=== PATIENT | male | born 1945 | race Caucasian/White ===

== ENCOUNTER 2018-04-17 15:45 | Inpatient (IN) ==
[2018-04-17] MEDS ORDERED: Metoprolol Inj 5 MG/5 ML Vial IV.PUSH ONE (15:54)
--- NOTE | 2018-04-17 16:05 | ED ---
HPI General Chief Complaint: Chest Pain Stated Complaint: STEMI Time Seen by Provider: 04/17/18 15:52 Source: patient Mode of arrival: EMS Limitations: no limitations History of Present Illness HPI narrative: The patient is a 72-year-old male who presents to the emergency department via EMS as a STEMI alert. The patient states he was trying to sleep this morning at 9 AM when he was awakened with shortness of breath. The patient complained of shortness of breath and intermittent chest tightness associated with the shortness of breath. The patient also had mild nausea without any vomiting or diaphoresis. The patient does have a history of atrial fibrillation and is currently anticoagulated with Coumadin. He denies any history of DVT or pulmonary embolism. The patient shortness of breath continued, therefore, EMS was called by the patient's . EMS stated that the patient was in atrial fibrillation with RVR, rate in the 170s-180s on scene. EMS provided nitroglycerin, aspirin, and Cardizem intravenously to slow the rate. The patient's rate came down into the 120s and EMS called a STEMI because the patient had a right bundle branch block. Upon arrival the patient' s discomfort is a 1, his shortness of breath has improved. The patient does have a history of previous CABG and is followed by his medical detailist at the [facility] clinic. complaint: Reports chest pain Onset (ago): hour(s) Duration: intermittent and improved Onset: during rest Pain location: Reports left chest Severity: moderate Severity scale (1-10): 1 Quality: Reports tightness Pain radiation: Reports none Relieving factors: nitroglycerin Exacerbating factors: nothing Associated symptoms: Reports nausea and dyspnea Treatments prior to arrival chest pain: Reports aspirin and nitroglycerin Related Data Home Medications Medication Instructions Recorded Confirmed enalapril maleate 5 mg PO TID 04/17/18 04/17/18 furosemide 40 mg PO DAILY 04/17/18 04/17/18 methocarbamol [Robaxin] 500 mg PO QID 04/17/18 04/17/18 omeprazole 40 mg PO DAILY 04/17/18 04/17/18 tamsulosin 0.4 mg PO HS 04/17/18 04/17/18 tramadol 50 mg PO QID 04/17/18 04/17/18 warfarin 5 mg PO BID 04/17/18 04/17/18 Allergies Allergy/AdvReac Type Severity Reaction Status Date / Time diatrizoate meglumine Allergy Severe Hives Unverified 04/17/18 17:13 gadobenic acid Allergy Severe Hives Unverified 04/17/18 17:13 gadodiamide Allergy Severe Hives Unverified 04/17/18 17:13 gadoteridol Allergy Severe Hives Unverified 04/17/18 17:13 iodixanol Allergy Severe Hives Unverified 04/17/18 17:13 iohexol Allergy Severe Hives Unverified 04/17/18 17:13 pesticide Allergy Intermediate Hives Unverified 04/17/18 17:13 Review of Systems ROS: all other systems reviewed are negative [facility] Medical History Medical History A-fib (Acute) CHF (congestive heart failure) (Acute) Heart attack (Acute) Surgical History Surgical History S/P CABG x 2 (Acute) Social History Social History Substance History: No History of Abuse Second Hand Smoke Exposure: Yes Smoking Status: Never smoker How Often Do You Have a Drink Containing Alcohol: Never Recent Travel in [facility] [place] within the Last 8 Weeks: No Recent Out of Country Travel within the Last 8 Weeks: No Exam Narrative Exam Narrative: GENERAL: Awake, alert, pleasant 72-year-old male who appears his stated age and is in no acute respiratory distress. SKIN: Focused skin assessment warm/dry. HEAD: Atraumatic. Normocephalic. EYES: No injection or drainage. ENT: No nasal bleeding or discharge. Mucous membranes pink and moist. NECK: Trachea midline. No JVD. CARDIOVASCULAR: Irregularly irregular, heart rate in the 120s. Well-healed scar over the sternum. RESPIRATORY: No accessory muscle use. Few scattered rales. GASTROINTESTINAL: Abdomen soft, obese, no rebound tenderness. MUSCULOSKELETAL: No obvious deformities. No clubbing. No cyanosis. Bilateral lower extremity pitting edema. NEUROLOGICAL: Awake and alert. No obvious cranial nerve deficits. Motor grossly within normal limits. Normal speech. PSYCHIATRIC: Appropriate mood and affect; insight and judgment normal. Course Initial Documented Vital Signs Pulse Rate 120 H 04/17/18 15:54 Respiratory Rate 17 04/17/18 15:54 Blood Pressure 138/67 04/17/18 15:54 Pulse Oximetry 90 L 04/17/18 15:54 Last Documented Vital Signs Pulse Rate 106 H 04/17/18 16:42 Respiratory Rate 25 H 04/17/18 16:42 Blood Pressure 131/81 04/17/18 16:42 Pulse Oximetry 94 L 04/17/18 16:42 Critical Care Time Critical Care Time: Yes Total Critical Care Time: 35 Attestation: Aggregate critical care time was 35 minutes. Time to perform other separately billable procedures was not included in the critical care time. My time did not include minutes spent treating any other patients simultaneously or on activities that did not directly contribute to the patient's treatment. The services I provided to this patient were to treat and/or prevent clinically significant deterioration that could result in: Pulmonary edema, cardiomyopathy , hypoxia, aspiration, arrhythmia, . I provided critical care services requiring my management, as noted below: Chart data review, documentation time, medication orders and management, vital sign assessments/reviewing monitor data, ordering and reviewing lab tests, ordering and interpreting/reviewing x-rays and diagnostic studies, care of the patient and discussion of the patient with the admitting physicians. Medical Decision Making MDM Narrative Medical decision making narrative: IV was established, labs are drawn and sent, and the patient was placed on cardiac telemetry monitoring and continuous pulse oximetry monitoring. EKG was ordered and interpreted. EKG reveals atrial fibrillation with RVR, right bundle branch block, no obvious STEMI. The patient 's chest pain is now a 1, the patient shortness of breath has resolved, I do not believe the patient is having acute STEMI. The patient received aspirin and nitroglycerin prior to arrival. The patient was not immediately anticoagulated, PT/INR was sent to lab as patient is on Coumadin. Chest x-ray was obtained. Chest x-ray does reveal cardiomegaly, questionable early pulmonary edema. Troponin was 0.05. The patient was reassessed at 5:10 PM, was chest pain-free. The patient still had mild tachycardia with a heart rate of 110, A. fib with RVR. The patient received Cardizem in the field and Lopressor in the emergency department. He is on sotalol for rate control through the CT clinic. Therefore, the patient will be placed on a Cardizem drip , placed in [facility], may need evaluation by cardiology. The patient had an INR of 1.3, he is subtherapeutic. The patient may need increase in warfarin levels and /or change in anticoagulation. I discussed the patient with Dr. Mcfarland who agrees with admission. Medical Screen Exam Complete: Yes Emergency Medical Condition: Yes Lab Data Lab results reviewed: Yes I reviewed the patient's lab results. Result diagrams: 04/17/18 16:07 04/17/18 16:07 Lab Results 04/17/18 04/17/18 04/17/18 Range/Units 16:07 16:07 16:07 WBC 11.2 H (4.0-11.0) th/mm3 RBC 4.56 (4.50-5.90) mil/mm3 Hgb 13.8 (13.0-17.0) gm/dL Hct 42.0 (39.0-51.0) % MCV 92.0 (80.0-100.0) fL MCH 30.4 (27.0-34.0) pg MCHC 33.0 (32.0-36.0) % RDW 14.7 (11.6-17.2) % Plt Count 186 (150-450) th/mm3 MPV 8.9 (7.0-11.0) fL Neut % (Auto) 87.1 H (16.0-70.0) % Lymph % (Auto) 6.8 L (9.0-44.0) % [place] % (Auto) 5.1 (0.0-8.0) % Eos % (Auto) 0.4 (0.0-4.0) % Baso % (Auto) 0.6 (0.0-2.0) % Neut # (Auto) 9.7 H (1.8-7.7) th/mm3 Lymph # (Auto) 0.8 L (1.0-4.8) th/mm3 Cabell # (Auto) 0.6 (0.0-0.9) th/mm3 Eos # (Auto) 0.0 (0.0-0.4) th/mm3 Baso # (Auto) 0.1 (0.0-0.2) th/mm3 WBC Differential . Differential Comment Auto diff final PT 12.7 H (9.8-11.6) sec INR 1.3 Ratio APTT 27.8 (24.3-30.1) sec Sodium 139 (136-145) meq/L Potassium 4.0 (3.5-5.1) meq/L Chloride 101 (98-107) meq/L Carbon Dioxide 28.2 (21.0-32.0) meq/L Anion Gap 10 (5-15) meq/L BUN 15 (7-18) mg/dL Creatinine 1.03 (0.60-1.30) mg/dL Estimated GFR 71 L (>89) mL/min Random Glucose 112 H (74-106) mg/dL Calcium 8.4 L (8.5-10.1) mg/dL Magnesium 2.0 (1.5-2.5) mg/dL Total Bilirubin 1.0 (0.2-1.0) mg/dL AST 24 (15-37) U/L ALT 30 (12-78) U/L Alkaline Phosphatase 85 (45-117) U/L Total Creatine Kinase 84 (39-308) U/L Troponin I 0.05 (0.02-0.05) ng/mL Total Protein 7.5 (6.4-8.2) g/dL Albumin 3.5 (3.4-5.0) g/dL Lipase 93 (73-393) U/L Imaging Data Radiologist's impression: Chest X-Ray 04/17/18 15:54 CONCLUSION: Cardiomegaly with pulmonary vascular engorgement. Bibasilar consolidation in part due to atelectasis on the left due to an elevated hemidiaphragm. I cannot exclude early pulmonary edema. ECG Data EKG Prior to Arrival: No Attestation: I personally reviewed and interpreted this ECG as follows: Interpretation: Atrial fibrillation with RVR, rate 115. Unifocal PVC. Right bundle branch block. Discharge Plan Discharge Disposition Patient Disposition: 30 Still Patient Discharge Condition Condition: Stable Discharge Details Diagnosis: Atrial fibrillation with RVR Physicians Team ED Provider: [place] Obrien Primary Care Provider: [facility] [place] Rxs /Orders / Referrals /Forms Prescriptions: No Action enalapril maleate 5 mg Tablet 5 mg PO TID RF: 0 furosemide 40 mg Tablet 40 mg PO DAILY RF: 0 omeprazole 40 mg Capsule,Delayed Release(Dr/Ec) 40 mg PO DAILY RF: 0 tamsulosin 0.4 mg Capsule 0.4 mg PO HS RF: 0 warfarin 5 mg Tablet 5 mg PO BID RF: 0 Discharge Instructions Patient Printed Instructions: Chest Pain (ED) Status ED Status: Pending Admission
--- NOTE | 2018-04-17 16:24 | XR ---
EXAM DATE: 04/17/2018 3:54 PM EDT AGE/SEX: 72 years / Male INDICATIONS: Chest pain. CLINICAL DATA: This is the patient's initial encounter. Patient reports that signs and symptoms have been present for 1 day and indicates a pain score of 1/10. MEDICAL/SURGICAL HISTORY: Chronic obstructive pulmonary disease. Congestive heart failure. Hy pertension. CABG. Heart attacks. COMPARISON: [facility], CHEST SINGLE AP, 05/07/2012. . FINDINGS: 2 portable frontal views the chest show cardiomegaly with pulmonary vascular engorgement. Consolidati on within both lung bases. Elevation of left hemidiaphragm which is stable. No discernible effusions. Median sternotomy wires noted. CONCLUSION: Cardiomegaly with pulmonary vascular engorgement. Bibasilar consolidation in part due to atelectasis on the left due to an elevated hemidiaphragm. I ca nnot exclude early pulmonary edema. Electronically signed by: Gonzalez Cook MD 04/17/2018 4:22 PM EDT
[2018-04-17 16:28] LABS: Baso # (Auto) 0.1 th/mm3 (0.0-0.2); Baso % (Auto) 0.6 % (0.0-2.0); Eos % (Auto) 0.4 % (0.0-4.0); Hemoglobin 13.8 gm/dL (13.0-17.0); Lymph # (Auto) 0.8 th/mm3 (1.0-4.8); Lymph % (Auto) 6.8 % (9.0-44.0); Mean Corpuscular Hemoglobin 30.4 pg (27.0-34.0); Mean Platelet Volume 8.9 fL (7.0-11.0); Mono # (Auto) 0.6 th/mm3 (0.0-0.9); Mono % (Auto) 5.1 % (0.0-8.0); Neut # (Auto) 9.7 th/mm3 (1.8-7.7); Neut % (Auto) 87.1 % (16.0-70.0); Platelet Count 186 th/mm3 (150-450); Red Blood Count 4.56 mil/mm3 (4.50-5.90); Red Cell Distribution Width 14.7 % (11.6-17.2); White Blood Count 11.2 th/mm3 (4.0-11.0)
[2018-04-17 16:33] LABS: Activated Partial Thrombo Time 27.8 sec (24.3-30.1); INR 1.3 Ratio; Prothrombin Time 12.7 sec (9.8-11.6)
[2018-04-17 16:51] LABS: Alanine Aminotransferase 30 U/L (12-78); Albumin 3.5 g/dL (3.4-5.0); Anion Gap 10 meq/L (5-15); Aspartate Aminotransferase 24 U/L (15-37); Blood Urea Nitrogen 15 mg/dL (7-18); Calcium 8.4 mg/dL (8.5-10.1); Carbon Dioxide 28.2 meq/L (21.0-32.0); Chloride 101 meq/L (98-107); Glomerular Filtration Rate 71 mL/min (>89); Glucose,Random 112 mg/dL (74-106); Lipase 93 U/L (73-393); Sodium 139 meq/L (136-145)
[2018-04-17 16:55] LABS: Alkaline Phosphatase 85 U/L (45-117); Total Protein 7.5 g/dL (6.4-8.2); Troponin I 0.05 ng/mL (0.02-0.05)
[2018-04-17 16:59] LABS: Creatine Kinase 84 U/L (39-308)
[2018-04-17] MEDS: dilTIAZem Inj 125 MG in Sodium Chlor 0.9% Inj 100 ML IV.CONT PRN (17:50)
[2018-04-17] MEDS ORDERED: Bisacodyl 10 MG Supp RECTAL PRN (18:29)
[2018-04-17] MEDS ORDERED: Sodium Chloride 0.9% 2 ML Flush PRN IV.FLUSH (18:46)
[2018-04-17 19:42] LABS: Activated Partial Thrombo Time 24.7 sec (24.3-30.1); INR 1.3 Ratio; Prothrombin Time 12.8 sec (9.8-11.6)
--- NOTE | 2018-04-17 20:10 | P.HPIM ---
History of Present Illness Service: [facility] Primary Care Physician: [facility] Chief Complaint: Chest pain History of Present Illness: 72 y/o male with a history of afib on anticoagulation, MA and CHF presented to the ED with complaints of chest pain. He states he began having pressure like, constant chest pain today in the center of his chest with radiation to his left chest with associated sob and vomiting. EMS stated that the patient was in atrial fibrillation with RVR, rate in the 170s-180s on scene. EMS provided nitroglycerin, aspirin, and Cardizem intravenously to slow the rate. The patient's rate came down into the 120s. Upon examination patient states he is comfortable, no chest pain or sob at this time. He follows with a cooler operator in [facility] at the [place]. Denies any fever, chills, headache, nausea, dizziness, or lower extremity weakness. Inpatient Certification: I certify that the inpatient services were ordered in accordance with Medicare regulations governing the order. This includes certification that hospital inpatient services are reasonable and necessary and in the case of services not specified as inpatient-only under 42 CFR 419.22(n), that they are appropriately provided as inpatient services in accordance to with the 2-midnight benchmark under 43 CFR 412.3(e) Estimated Total Length of Stay (Days): 3 Plans for Post Hospital Care: Not yet determined Review of Systems All other systems reviewed negative except as stated in HPI PMFSH - History History Provided By: Patient - Medical History Medical History: Medical History (Last Reviewed 04/17/18 @ 20:12 by ANUSHKA Mims) A-fib CHF (congestive heart failure) Heart attack - Surgical History Surgical History: Surgical History (Last Reviewed 04/17/18 @ 20:12 by ANUSHKA Mims) S/P CABG x 2 - Family History Family History: Family History (Last Reviewed 04/17/18 @ 20:12 by ANUSHKA Mims) Other Heart disease - Social History I have reviewed the patient's Social History: Yes - Tobacco History Second Hand Smoke Exposure: Yes Smoking Status: Never smoker - Alcohol History How Often Do You Have a Drink Containing Alcohol: Never - Substance Use History Substance History: No History of Abuse - Travel History Recent Travel in the [place] Within the Last 8 Weeks: No Recent Travel Out of the Country Within the Last 8 Weeks: No - Immunization History Tetanus Immunization: >5 Years Medications and Allergies Active Medications: Active Medications Acetaminophen (Tylenol) 650 mg PO Q4H PRN PRN Reason: Temp > 100.4 Al Hydroxide/Mg Hydroxide (Milk Of Magnesia Liq) 30 ml PO Q12H PRN PRN Reason: Mild Constipation Bisacodyl (Dulcolax Supp) 10 mg RECTAL DAILY PRN PRN Reason: SEVERE CONSITIPATION Heparin Sodium (Porcine) (Heparin Inj) 2,500 units IV.PUSH UNSCH PRN PRN Reason: aPTT 25-39 Heparin Sodium (Porcine) (Heparin Inj) 5,000 units IV.PUSH UNSCH PRN PRN Reason: aPTT < 25 Diltiazem HCl 125 mg/ Sodium (Chloride) 125 mls @ 5 mls/hr IV.CONT TITRATE PRN ; Protocol PRN Reason: Per Protocol Last Titration: 04/17/18 18:22 Dose: 15 mg/hr, 15 mls/hr Heparin Sodium/Dextrose (Heparin/D5w 25,000 U/250 Ml) 25,000 unit in 250 mls @ 10 mls/hr IV.CONT TITRATE PRN; Protocol PRN Reason: Per Protocol Lactulose (Lactulose Liq) 30 ml PO DAILY PRN PRN Reason: SEVERE CONSITIPATION Ondansetron HCl (Zofran Inj) 4 mg IV.PUSH Q6H PRN PRN Reason: NAUSEA OR VOMITING Senna/Docusate Sodium (Nori-Colace) 1 tab PO BID HERN[place]N Sennosides (Senokot) 17.2 mg PO Q12H PRN PRN Reason: Moderate Constipation Sodium Chloride (Ns Flush) 2 ml IV.FLUSH BID [place]ERN[place]N Sodium Chloride (Ns Flush) 2 ml IV.FLUSH PRN PRN PRN Reason: FLUSH AFTER USING IV ACCESS Allergies Allergy/AdvReac Type Severity Reaction Status Date / Time diatrizoate meglumine Allergy Severe Hives Verified 04/17/18 17:22 gadobenic acid Allergy Severe Hives Verified 04/17/18 17:22 gadodiamide Allergy Severe Hives Verified 04/17/18 17:22 gadoteridol Allergy Severe Hives Verified 04/17/18 17:22 iodixanol Allergy Severe Hives Verified 04/17/18 17:22 iohexol Allergy Severe Hives Verified 04/17/18 17:22 pesticide Allergy Intermediate Hives Verified 04/17/18 17:22 Home Medications Medication Instructions Recorded Confirmed Type enalapril maleate 5 mg PO TID 04/17/18 04/17/18 History furosemide 40 mg PO DAILY 04/17/18 04/17/18 History methocarbamol [Robaxin] 500 mg PO QID 04/17/18 04/17/18 History omeprazole 40 mg PO DAILY 04/17/18 04/17/18 History sotalol 90 mg PO Q12H 04/17/18 04/17/18 History tamsulosin 0.4 mg PO HS 04/17/18 04/17/18 History tramadol 50 mg PO QID 04/17/18 04/17/18 History warfarin 5 mg PO BID 04/17/18 04/17/18 History Exam Vital signs: Vital Signs 04/17/18 15:54 04/17/18 16:00 04/17/18 16:42 Pulse Rate 120 H 106 H Respiratory Rate 17 25 H Blood Pressure 138/67 131/81 Pulse Oximetry 90 L 95 94 L 04/17/18 18:23 Pulse Rate 124 H Respiratory Rate 26 H Blood Pressure 118/87 Pulse Oximetry 95 Intake & Output 04/17/18 04/17/18 04/18/18 06:59 18:59 06:59 Output Total 800 / 800 Balance -800 / -800 Weight 145.367 kg Output: Urine 800 / 800 Narrative: GENERAL: This is a well-nourished, well-developed patient, in no apparent distress. CARDIOVASCULAR: irregular rate and rhythm without murmurs, gallops, or rubs. RESPIRATORY: Clear to auscultation. Breath sounds equal bilaterally. No wheezes , rales, or rhonchi. GASTROINTESTINAL: Abdomen soft, non-tender, nondistended. Normal active bowel sounds MUSCULOSKELETAL: Extremities without clubbing, cyanosis, or edema. NEURO: Alert & Oriented x4 to person, place, time, situation. Moves all ext x4 Results - Labs CBC & Chem 7: 04/17/18 16:07 04/17/18 16:07 Labs: Short CBC 04/17/18 Range/Units 16:07 WBC 11.2 H (4.0-11.0) th/mm3 Hgb 13.8 (13.0-17.0) gm/dL Hct 42.0 (39.0-51.0) % Plt Count 186 (150-450) th/mm3 BMP 04/17/18 16:07 Sodium 139 Potassium 4.0 Chloride 101 Carbon Dioxide 28.2 BUN 15 Creatinine 1.03 Calcium 8.4 L Cardiac Enzymes 04/17/18 04/17/18 Range/Units 16:07 19:05 Total Creatine Kinase 84 (39-308) U/L Troponin I 0.05 0.05 (0.02-0.05) ng/mL Liver Function 04/17/18 Range/Units 16:07 Total Bilirubin 1.0 (0.2-1.0) mg/dL AST 24 (15-37) U/L ALT 30 (12-78) U/L Alkaline Phosphatase 85 (45-117) U/L Albumin 3.5 (3.4-5.0) g/dL - Imaging Impressions Chest X-Ray 04/17/18 15:54 CONCLUSION: Cardiomegaly with pulmonary vascular engorgement. Bibasilar consolidation in part due to atelectasis on the left due to an elevated hemidiaphragm. I cannot exclude early pulmonary edema. Caprini VTE Risk Assessment Caprini VTE Risk Assessment: Moderate/High Risk (score >= 2) Caprini Risk Assessment Model: Point Value = 1 Point Value = 2 Point Value = 3 Point Value = 5 Age 41-60 Minor surgery BMI > 25 kg/m2 Swollen legs Varicose veins or History of unexplained or recurrent spontaneous Oral contraceptives or hormone replacement Sepsis (< 1 month) Serious lung disease, including pneumonia (< 1 month) Abnormal pulmonary function Acute myocardial infarction Congestive heart failure (< 1 month) History of inflammatory bowel disease Medical patient at bed rest Age 61-74 Arthroscopic surgery Major open surgery (> 45 min) Laparoscopic surgery (> 45 min) Malignancy Confined to bed (> 72 hours) Immobilizing plaster cast Central venous access Age >= 75 History of VTE Family history of VTE Factor V Leiden Prothrombin [id number] Lupus anticoagulant Anticardiolipin antibodies Elevated serum homocysteine Heparin-induced thrombocytopenia Other congenital or acquired thrombophilia Stroke (< 1 month) Elective arthroplasty Hip, pelvis, or leg fracture Acute spinal cord injury (< 1 month) Prophylaxis Regimen: Total Risk Factor Score Risk Level Prophylaxis Regimen 0-1 Low Early ambulation 2 Moderate Order ONE of the following: *Sequential Compression Device (SCD) *Heparin 5000 units SQ BID 3-4 Higher Order ONE of the following medications: *Heparin 5000 units SQ TID *Enoxaparin/Lovenox 40 mg SQ daily (WT < 150 kg, CrCl > 30 mL/min) *Enoxaparin/Lovenox 30 mg SQ daily (WT < 150 kg, CrCl > 10-29 mL/min) *Enoxaparin/Lovenox 30 mg SQ BID (WT < 150 kg, CrCl > 30 mL/min) AND/OR *Sequential Compression Device (SCD) 5 or more Highest Order ONE of the following medications: *Heparin 5000 units SQ TID (Preferred with Epidurals) *Enoxaparin/Lovenox 40 mg SQ daily (WT < 150 kg, CrCl > 30 mL/min) *Enoxaparin/Lovenox 30 mg SQ daily (WT < 150 kg, CrCl > 10-29 mL/min) *Enoxaparin/Lovenox 30 mg SQ BID (WT < 150 kg, CrCl > 30 mL/min) AND *Sequential Compression Device (SCD) Assessment and Plan - Plan 72 y/o male with a history of afib on anticoagulation, MA and CHF presented to the ED with complaints of chest pain. He states he began having pressure like, constant chest pain today in the center of his chest with radiation to his left chest with associated sob and vomiting. NSTEMI with AFIB RVR Troponin .05 EGS reviewed and shows afib rvr with RBBB -Serial troponin and ekgs -Cardizem drip -Consult to cardiology -Heparin drip -Monitor telemetry -Nitropaste q6 Hypertension -Resume home medications, monitor vitals CHF, possible early exacerbation, bnp 147 Chest x ray shows atelectasis with possible edema -Resume home Lasix -Monitor fluid intake Dvt prophylaxis: SCDs, Heparin Discussed Condition With: Patient
--- NOTE | 2018-04-17 20:12 | ECG ---
Date Performed: 04/17/2018 Time Performed: 15:49:17 PTAGE: 72 years EKG: ATRIAL FIBRILLATION WITH RAPID VENTRICULAR RESPONSE RIGHT AXIS DEVIATION RIGHT BUNDLE BRANC H BLOCK POSSIBLE SEPTAL MYOCARDIAL INFARCTION ABNORMAL ECG NO PREVIOUS TRACING DOCTOR: Steven Galarza Interpretating Date/Time 04/17/2018 20:10:59
[2018-04-17] MEDS: Heparin Drip 25,000 UNIT/250 ML BAG IV.CONT PRN (22:10)
--- NOTE | 2018-04-17 22:30 | ECG ---
Date Performed: 04/17/2018 Time Performed: 19:07:15 PTAGE: 72 years EKG: ATRIAL FIBRILLATION WITH RAPID VENTRICULAR RESPONSE RIGHT AXIS DEVIATION RIGHT BUNDLE BRANC H BLOCK ABNORMAL ECG NO PREVIOUS TRACING DOCTOR: Steven Galarza Interpretating Date/Time 04/17/2018 22:29:19
[2018-04-17] MEDS: Senna/Docusate Sodium 8.6/50 MG Tablet PO SCH (22:33)
[2018-04-17] MEDS: Sodium Chloride 0.9% 2 ML Flush BID IV.FLUSH SCH (22:33)
[2018-04-18] MEDS ORDERED: Heparin 10,000 UNITS/10 ML Vial (for IV use) IV.PUSH PRN (00:45)
[2018-04-18] MEDS: dilTIAZem Inj 125 MG in Sodium Chlor 0.9% Inj 100 ML IV.CONT PRN ×2 (02:35→11:00)
[2018-04-18] MEDS: Heparin 10,000 UNITS/10 ML Vial (for IV use) IV.PUSH PRN ×2 (04:36→13:42)
[2018-04-18 05:56] LABS: Baso % (Auto) 0.5 % (0.0-2.0); Eos % (Auto) 0.1 % (0.0-4.0); Hematocrit 38.9 % (39.0-51.0); Hemoglobin 12.8 gm/dL (13.0-17.0); Lymph # (Auto) 1.1 th/mm3 (1.0-4.8); Lymph % (Auto) 12.8 % (9.0-44.0); Mean Corpuscular Volume 91.2 fL (80.0-100.0); Mean Platelet Volume 8.6 fL (7.0-11.0); Mono # (Auto) 0.7 th/mm3 (0.0-0.9); Mono % (Auto) 8.1 % (0.0-8.0); Neut # (Auto) 6.5 th/mm3 (1.8-7.7); Neut % (Auto) 78.5 % (16.0-70.0); Platelet Count 136 th/mm3 (150-450); Red Blood Count 4.26 mil/mm3 (4.50-5.90); Red Cell Distribution Width 14.8 % (11.6-17.2); White Blood Count 8.3 th/mm3 (4.0-11.0)
[2018-04-18 06:12] LABS: INR 1.4 Ratio; Prothrombin Time 13.8 sec (9.8-11.6)
[2018-04-18 06:18] LABS: Albumin 3.1 g/dL (3.4-5.0); Anion Gap 7 meq/L (5-15); Aspartate Aminotransferase 22 U/L (15-37); Blood Urea Nitrogen 16 mg/dL (7-18); Calcium 8.6 mg/dL (8.5-10.1); Carbon Dioxide 30.1 meq/L (21.0-32.0); Chloride 99 meq/L (98-107); Glomerular Filtration Rate 83 mL/min (>89); Glucose,Random 110 mg/dL (74-106); Potassium 3.7 meq/L (3.5-5.1); Sodium 136 meq/L (136-145)
[2018-04-18 06:19] LABS: Alanine Aminotransferase 25 U/L (12-78)
[2018-04-18 06:21] LABS: Alkaline Phosphatase 72 U/L (45-117); Total Protein 6.7 g/dL (6.4-8.2)
[2018-04-18] MEDS: Furosemide 40 MG Tablet PO SCH (08:44)
[2018-04-18] MEDS: Senna/Docusate Sodium 8.6/50 MG Tablet PO SCH ×2 (08:44→22:44)
[2018-04-18] MEDS: Sodium Chloride 0.9% 2 ML Flush BID IV.FLUSH SCH ×2 (08:45→22:44)
--- NOTE | 2018-04-18 08:50 | ECG ---
Date Performed: 04/18/2018 Time Performed: 00:27:40 PTAGE: 72 years EKG: Atrial fibrillation RBBB with left anterior fascicular block Nonspecific ST changes Abnorma l ECG PREVIOUS TRACING : 04/17/2018 19.07 No significant change from previous tracing noted. DOCTOR: Steven Galarza Interpretating Date/Time 04/18/2018 08:49:03
[2018-04-18] MEDS ORDERED: SOTALOL PO SCH (09:00)
--- NOTE | 2018-04-18 12:00 | P.CONCA ---
History of Present Illness Primary Care Provider: [facility] Chief Complaint: Chest pain History of Present Illness: 72 year old gentleman with a PMH of afib on coumadin, hx of CAD s/p CABG who presented to the ER with complaints of shortness of breath starting earlier in the morning associated with tightness of chest that awoke him. He was found to be in afib wiith RVR that responsed to IV DIltiazem. He is currently chest pain free on Diltiazem gtt with better HR controll. He is on Sotolol and has a history of prior ablation. According to the patient he is not always the most compliant with his coumadin. 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 He has had a prior history of afib ablation and has been maintained on sotalol. Review of Systems All other systems reviewed negative except as stated in HPI [facility] - History History Provided By: Patient - Medical History Medical History: Medical History (Last Reviewed 04/18/18 @ 08:41 by Ghulam Martin) A-fib CHF (congestive heart failure) Heart attack - Surgical History Surgical History: Surgical History (Last Reviewed 04/18/18 @ 08:42 by Ghulam Martin) S/P CABG x 2 - Family History Family History: Family History (Last Reviewed 04/17/18 @ 20:12 by ANUSHKA Mims) Other Heart disease - Tobacco History Second Hand Smoke Exposure: No Tobacco Use In Past 30 Days: No Smoking Status: Never smoker - Alcohol History How Often Do You Have a Drink Containing Alcohol: Never - Substance Use History Substance History: No History of Abuse - Travel History Recent Travel in the [place] Within the Last 8 Weeks: No Recent Travel Out of the Country Within the Last 8 Weeks: No - Immunization History Tetanus Immunization: >5 Years Medications and Allergies Active Medications: Active Medications Acetaminophen (Tylenol) 650 mg PO Q4H PRN PRN Reason: Temp > 100.4 Al Hydroxide/Mg Hydroxide (Milk Of Magnfany Liq) 30 ml PO Q12H PRN PRN Reason: Mild Constipation Bisacodyl (Dulcolax Supp) 10 mg RECTAL DAILY PRN PRN Reason: SEVERE CONSITIPATION Enalapril Maleate (Vasotec) 5 mg PO TID [facility] Last Admin: 04/18/18 08:46 Dose: 5 mg Furosemide (Lasix) 40 mg PO DAILY [facility] Last Admin: 04/18/18 08:44 Dose: 40 mg Heparin Sodium (Porcine) (Heparin Inj) 2,500 units IV.PUSH UNSCH PRN PRN Reason: aPTT 25-39 Last Admin: 04/18/18 04:36 Dose: 2,500 units Heparin Sodium (Porcine) (Heparin Inj) 5,000 units IV.PUSH UNSCH PRN PRN Reason: aPTT < 25 Diltiazem HCl 125 mg/ Sodium (Chloride) 125 mls @ 5 mls/hr IV.CONT TITRATE PRN ; Protocol PRN Reason: Per Protocol Last Admin: 04/18/18 11:00 Dose: 10 mg/hr, 10 mls/hr Heparin Sodium/Dextrose (Heparin/D5w 25,000 U/250 Ml) 25,000 unit in 250 mls @ 10 mls/hr IV.CONT TITRATE PRN; Protocol PRN Reason: Per Protocol Last Titration: 04/18/18 04:19 Dose: 1,000 units/hr, 10 mls/hr Lactulose (Lactulose Liq) 30 ml PO DAILY PRN PRN Reason: SEVERE CONSITIPATION Nitroglycerin (Nitro-Bid 2% Oint) 0.5 inch TOPICAL Q6HR [facility] Last Admin: 04/18/18 05:49 Dose: Not Given Ondansetron HCl (Zofran Inj) 4 mg IV.PUSH Q6H PRN PRN Reason: NAUSEA OR VOMITING Patient Own Med- (Sotalol 90 Mg) 0 each PO Q12H [facility] Senna/Docusate Sodium (Nori-Colace) 1 tab PO BID [facility] Last Admin: 04/18/18 08:44 Dose: 1 tab Sennosides (Senokot) 17.2 mg PO Q12H PRN PRN Reason: Moderate Constipation Sodium Chloride (Ns Flush) 2 ml IV.FLUSH BID [facility] Last Admin: 04/18/18 08:45 Dose: 2 ml Sodium Chloride (Ns Flush) 2 ml IV.FLUSH PRN PRN PRN Reason: FLUSH AFTER USING IV ACCESS Tamsulosin HCl (Flomax) 0.[address] [facility] Allergies Allergy/AdvReac Type Severity Reaction Status Date / Time diatrizoate meglumine Allergy Severe Hives Verified 04/17/18 17:22 gadobenic acid Allergy Severe Hives Verified 04/17/18 17:22 gadodiamide Allergy Severe Hives Verified 04/17/18 17:22 gadoteridol Allergy Severe Hives Verified 04/17/18 17:22 iodixanol Allergy Severe Hives Verified 04/17/18 17:22 iohexol Allergy Severe Hives Verified 04/17/18 17:22 pesticide Allergy Intermediate Hives Verified 04/17/18 17:22 Home Medications Medication Instructions Recorded Confirmed Type enalapril maleate 5 mg PO TID 04/17/18 04/17/18 History furosemide 40 mg PO DAILY 04/17/18 04/17/18 History methocarbamol [Robaxin] 500 mg PO QID 04/17/18 04/17/18 History omeprazole 40 mg PO DAILY 04/17/18 04/17/18 History sotalol 90 mg PO Q12H 04/17/18 04/17/18 History tamsulosin 0.4 mg PO HS 04/17/18 04/17/18 History tramadol 50 mg PO QID 04/17/18 04/17/18 History warfarin 5 mg PO BID 04/17/18 04/17/18 History Exam Vital signs: Vital Signs 04/17/18 15:54 04/17/18 16:00 04/17/18 16:42 Temperature Pulse Rate 120 H 106 H Respiratory Rate 17 25 H Blood Pressure 138/67 131/81 Pulse Oximetry 90 L 95 94 L 04/17/18 18:23 04/17/18 20:00 04/17/18 21:00 Temperature Pulse Rate 124 H 102 H 102 H Respiratory Rate 26 H 18 Blood Pressure 118/87 149/78 H Pulse Oximetry 95 93 L 04/17/18 22:00 04/17/18 23:00 04/17/18 23:45 Temperature Pulse Rate 90 84 Respiratory Rate Blood Pressure Pulse Oximetry 94 L 04/18/18 00:32 04/18/18 01:00 04/18/18 02:00 Temperature Pulse Rate 105 H 80 88 Respiratory Rate Blood Pressure Pulse Oximetry 04/18/18 03:00 04/18/18 03:45 04/18/18 04:00 Temperature Pulse Rate 88 84 Respiratory Rate 18 Blood Pressure 114/65 Pulse Oximetry 94 L 93 L 04/18/18 05:28 04/18/18 06:00 04/18/18 07:00 Temperature Pulse Rate 92 H 53 L 86 Respiratory Rate Blood Pressure Pulse Oximetry 04/18/18 07:24 04/18/18 08:00 04/18/18 08:40 Temperature 99.6 F Pulse Rate 80 Respiratory Rate 17 Blood Pressure 108/59 L Pulse Oximetry 95 95 92 L 04/18/18 09:00 04/18/18 10:00 04/18/18 10:10 Temperature Pulse Rate 80 82 Respiratory Rate Blood Pressure Pulse Oximetry 95 Intake & Output 04/17/18 04/18/18 04/18/18 18:59 06:59 18:59 Intake Total 555 / 555 125 / 125 Output Total 800 / 800 400 / 400 Balance -800 / -800 155 / 155 125 / 125 Weight 145.367 kg 148.5 kg Intake: IV 195 / 195 125 / 125 Heparin/D5W 25,000 U/250 mL 25, 70 / 70 000 unit In 250 ml @ 1,000 UNITS/HR 10 mls/hr IV.CONT TITRATE PRN Rx#:[id number] Cardizem Inj 125 MG In NS Inj 125 / 125 125 / 125 100 ML @ 5 MG/HR 5 mls/hr IV. CONT TITRATE PRN Rx#:[id number] Oral 360 / 360 Output: Urine 800 / 800 400 / 400 Other: Date of Last Bowel Movement 04/15/18 - Constitutional no acute distress (above average body habitus) - Routine HEENT Exam Head: Present: normocephalic Eye: Present: EOMI, PERRL ENT: Present: mucous membranes moist - Routine Neck Exam Present: supple. Absent: JVD - Routine Respiratory Exam Present: decreased breath sounds (at base) - Routine Cardiovascular Exam Present: S1, S2, murmur (1/6 at apex), irregular rhythm - Routine Abdominal Exam Present: soft, normoactive bowel sounds. Absent: tenderness - Routine Extremities Exam Absent: edema - Routine Neurological Exam Present: alert, oriented X3, CN II-XII intact Results 04/18/18 05:38 04/18/18 05:38 Cardiac Enzymes 04/17/18 04/17/18 04/17/18 Range/Units 16:07 16:07 19:05 AST 24 (15-37) U/L Troponin I 0.05 0.05 (0.02-0.05) ng/mL B-Natriuretic Peptide 147 H (0-100) pg/mL 04/18/18 04/18/18 Range/Units 00:56 05:38 AST 22 (15-37) U/L Troponin I 0.07 H (0.02-0.05) ng/mL B-Natriuretic Peptide (0-100) pg/mL Coagulation 04/17/18 04/17/18 04/17/18 Range/Units 16:07 16:07 19:05 PT 12.7 H 12.8 H (9.8-11.6) sec APTT 27.8 24.7 (24.3-30.1) sec B-Natriuretic Peptide 147 H (0-100) pg/mL 04/17/18 04/18/18 04/18/18 Range/Units 19:05 00:56 05:38 PT Cancelled 13.8 H (9.8-11.6) sec APTT Cancelled 32.0 H D (24.3-30.1) sec B-Natriuretic Peptide (0-100) pg/mL CBC 04/17/18 04/18/18 Range/Units 16:07 05:38 WBC 11.2 H 8.3 (4.0-11.0) th/mm3 RBC 4.56 4.26 L (4.50-5.90) mil/mm3 Hgb 13.8 12.8 L (13.0-17.0) gm/dL Hct 42.0 38.9 L (39.0-51.0) % Plt Count 186 136 L (150-450) th/mm3 Neut # (Auto) 9.7 H 6.5 (1.8-7.7) th/mm3 Lymph # (Auto) 0.8 L 1.1 (1.0-4.8) th/mm3 [place] # (Auto) 0.6 0.7 (0.0-0.9) th/mm3 Eos # (Auto) 0.0 0.0 (0.0-0.4) th/mm3 Baso # (Auto) 0.1 0.0 (0.0-0.2) th/mm3 Comprehensive Metabolic Panel 04/17/18 04/18/18 Range/Units 16:07 05:38 Sodium 139 136 (136-145) meq/L Potassium 4.0 3.7 (3.5-5.1) meq/L Chloride 101 99 (98-107) meq/L Carbon Dioxide 28.2 30.1 (21.0-32.0) meq/L BUN 15 16 (7-18) mg/dL Creatinine 1.03 0.90 (0.60-1.30) mg/dL Calcium 8.4 L 8.6 (8.5-10.1) mg/dL AST 24 22 (15-37) U/L ALT 30 25 (12-78) U/L Alkaline Phosphatase 85 72 (45-117) U/L Total Protein 7.5 6.7 D (6.4-8.2) g/dL Albumin 3.5 3.1 L (3.4-5.0) g/dL Intake and Output 04/17/18 04/18/18 04/18/18 22:59 06:59 14:59 Intake Total 555 / 555 125 / 125 Output Total 800 / 800 400 / 400 Balance -800 / -800 155 / 155 125 / 125 Intake: IV 195 / 195 125 / 125 Heparin/D5W 25,000 U/250 mL 25, 70 / 70 000 unit In 250 ml @ 1,000 UNITS/HR 10 mls/hr IV.CONT TITRATE PRN Rx#:[id number] Cardizem Inj 125 MG In NS Inj 125 / 125 125 / 125 100 ML @ 5 MG/HR 5 mls/hr IV. CONT TITRATE PRN Rx#:[id number] Oral 360 / 360 Output: Urine 800 / 800 400 / 400 Other: Date of Last Bowel Movement 04/15/18 Weight 145.367 kg 148.5 kg - Imaging and Cardiology Imaging: Impressions Chest X-Ray 04/17/18 15:54 CONCLUSION: Cardiomegaly with pulmonary vascular engorgement. Bibasilar consolidation in part due to atelectasis on the left due to an elevated hemidiaphragm. I cannot exclude early pulmonary edema. EKG interpretations - Dysrhythmias Supraventricular dysrhythmia: atrial fibrillation Assessment and Plan - Plan paroxysmal Afib- echo showed normal EF, no significant valve disease. -continue sotalol -continue coumadin, will consider switch to Eliquis as the patient has been missing doses. Also INR was low. -start diltiazem po and titrate down IV gtt, upon d/c can change to long acting Diltiazem. No need for JAYSON + cardioversion right now. Can likely follow up as outpatient. CAD s/p CABG -start ASA 81mg po qday should add statin Hx of CHF -would continue lasix and enalapril. WIth rate control he does not appear volume up. He is on sotalol already. EF is normal. Mildly Elevated troponin-likely secondary to the afib with RVR. No need to trend further. Please call with questions. Thank you.
[2018-04-18] MEDS ORDERED: Warfarin Consult Pharmacy OTHER PRN (12:02)
[2018-04-18] MEDS: dilTIAZem 30 MG Tablet PO SCH ×2 (13:13→17:35)
--- NOTE | 2018-04-18 14:51 | P.PNIM ---
Subjective Interval history: Patient reports feeling better. He denies chest pain or shortness of breath. Physical Exam Vital signs: Vital Signs 04/17/18 15:54 04/17/18 16:00 04/17/18 16:42 Temperature Pulse Rate 120 H 106 H Respiratory Rate 17 25 H Blood Pressure 138/67 131/81 Pulse Oximetry 90 L 95 94 L 04/17/18 18:23 04/17/18 20:00 04/17/18 21:00 Temperature Pulse Rate 124 H 102 H 102 H Respiratory Rate 26 H 18 Blood Pressure 118/87 149/78 H Pulse Oximetry 95 93 L 04/17/18 22:00 04/17/18 23:00 04/17/18 23:45 Temperature Pulse Rate 90 84 Respiratory Rate Blood Pressure Pulse Oximetry 94 L 04/18/18 00:32 04/18/18 01:00 04/18/18 02:00 Temperature Pulse Rate 105 H 80 88 Respiratory Rate Blood Pressure Pulse Oximetry 04/18/18 03:00 04/18/18 03:45 04/18/18 04:00 Temperature Pulse Rate 88 84 Respiratory Rate 18 Blood Pressure 114/65 Pulse Oximetry 94 L 93 L 04/18/18 05:28 04/18/18 06:00 04/18/18 07:00 Temperature Pulse Rate 92 H 53 L 86 Respiratory Rate Blood Pressure Pulse Oximetry 04/18/18 07:24 04/18/18 08:00 04/18/18 08:40 Temperature 99.6 F Pulse Rate 80 Respiratory Rate 17 Blood Pressure 108/59 L Pulse Oximetry 95 95 92 L 04/18/18 09:00 04/18/18 10:00 04/18/18 10:10 Temperature Pulse Rate 80 82 Respiratory Rate Blood Pressure Pulse Oximetry 95 04/18/18 11:00 04/18/18 12:00 04/18/18 12:08 Temperature Pulse Rate 82 76 Respiratory Rate Blood Pressure Pulse Oximetry 96 04/18/18 12:09 04/18/18 13:00 04/18/18 13:14 Temperature 98.8 F Pulse Rate 72 76 79 Respiratory Rate 17 17 Blood Pressure 112/53 L 113/45 L Pulse Oximetry 96 96 Intake & Output 04/17/18 04/18/18 04/18/18 18:59 06:59 18:59 Intake Total 555 / 555 125 / 125 Output Total 800 / 800 400 / 400 Balance -800 / -800 155 / 155 125 / 125 Weight 145.367 kg 148.5 kg Intake: IV 195 / 195 125 / 125 Heparin/D5W 25,000 U/250 mL 25, 70 / 70 000 unit In 250 ml @ 1,000 UNITS/HR 10 mls/hr IV.CONT TITRATE PRN Rx#:[id number] Cardizem Inj 125 MG In NS Inj 125 / 125 125 / 125 100 ML @ 5 MG/HR 5 mls/hr IV. CONT TITRATE PRN Rx#:[id number] Oral 360 / 360 Output: Urine 800 / 800 400 / 400 Other: Date of Last Bowel Movement 04/15/18 Narrative: GENERAL: This is a well-nourished, well-developed patient, in no apparent distress. CARDIOVASCULAR:rate in the 90's and irregular rhythm without murmurs, gallops, or rubs. RESPIRATORY: Clear to auscultation. Breath sounds equal bilaterally. No wheezes , rales, or rhonchi. GASTROINTESTINAL: Abdomen soft, non-tender, nondistended. Normal active bowel sounds MUSCULOSKELETAL: Extremities without clubbing, cyanosis, or edema. NEURO: Alert & Oriented x4 to person, place, time, situation. Moves all ext x4 Results - Labs CBC & Chem 7: 04/18/18 05:38 04/18/18 05:38 Laboratory Results - last 24 hr 04/17/18 04/17/18 04/17/18 16:07 16:07 16:07 WBC 11.2 H RBC 4.56 Hgb 13.8 Hct 42.0 MCV 92.0 MCH 30.4 MCHC 33.0 RDW 14.7 Plt Count 186 MPV 8.9 Neut % (Auto) 87.1 H Lymph % (Auto) 6.8 L [place] % (Auto) 5.1 Eos % (Auto) 0.4 Baso % (Auto) 0.6 Neut # (Auto) 9.7 H Lymph # (Auto) 0.8 L [place] # (Auto) 0.6 Eos # (Auto) 0.0 Baso # (Auto) 0.1 WBC Differential . Differential Comment Auto diff final PT 12.7 H INR 1.3 APTT 27.8 Sodium 139 Potassium 4.0 Chloride 101 Carbon Dioxide 28.2 Anion Gap 10 BUN 15 Creatinine 1.03 Estimated GFR 71 L Random Glucose 112 H Calcium 8.4 L Magnesium 2.0 Total Bilirubin 1.0 AST 24 ALT 30 Alkaline Phosphatase 85 Total Creatine Kinase 84 Troponin I 0.05 B-Natriuretic Peptide Total Protein 7.5 Albumin 3.5 Lipase 93 04/17/18 04/17/18 04/17/18 16:07 19:05 19:05 WBC RBC Hgb Hct MCV MCH MCHC RDW Plt Count MPV Neut % (Auto) Lymph % (Auto) [place] % (Auto) Eos % (Auto) Baso % (Auto) Neut # (Auto) Lymph # (Auto) [place] # (Auto) Eos # (Auto) Baso # (Auto) WBC Differential Differential Comment PT 12.8 H INR 1.3 APTT 24.7 Sodium Potassium Chloride Carbon Dioxide Anion Gap BUN Creatinine Estimated GFR Random Glucose Calcium Magnesium Total Bilirubin AST ALT Alkaline Phosphatase Total Creatine Kinase Troponin I 0.05 B-Natriuretic Peptide 147 H Total Protein Albumin Lipase 04/17/18 04/18/18 04/18/18 19:05 00:56 00:56 WBC RBC Hgb Hct MCV MCH MCHC RDW Plt Count MPV Neut % (Auto) Lymph % (Auto) [place] % (Auto) Eos % (Auto) Baso % (Auto) Neut # (Auto) Lymph # (Auto) [place] # (Auto) Eos # (Auto) Baso # (Auto) WBC Differential Differential Comment PT Cancelled INR Cancelled APTT Cancelled 32.0 H D Sodium Potassium Chloride Carbon Dioxide Anion Gap BUN Creatinine Estimated GFR Random Glucose Calcium Magnesium Total Bilirubin AST ALT Alkaline Phosphatase Total Creatine Kinase Troponin I 0.07 H B-Natriuretic Peptide Total Protein Albumin Lipase 04/18/18 04/18/18 04/18/18 05:38 05:38 05:38 WBC 8.3 RBC 4.26 L Hgb 12.8 L Hct 38.9 L MCV 91.2 MCH 30.0 MCHC 33.0 RDW 14.8 Plt Count 136 L MPV 8.6 Neut % (Auto) 78.5 H Lymph % (Auto) 12.8 [place] % (Auto) 8.1 H Eos % (Auto) 0.1 Baso % (Auto) 0.5 Neut # (Auto) 6.5 Lymph # (Auto) 1.1 [place] # (Auto) 0.7 Eos # (Auto) 0.0 Baso # (Auto) 0.0 WBC Differential . Differential Comment Auto diff final PT 13.8 H INR 1.4 APTT Sodium 136 Potassium 3.7 Chloride 99 Carbon Dioxide 30.1 Anion Gap 7 BUN 16 Creatinine 0.90 Estimated GFR 83 L Random Glucose 110 H Calcium 8.6 Magnesium Total Bilirubin 0.9 AST 22 ALT 25 Alkaline Phosphatase 72 Total Creatine Kinase Troponin I B-Natriuretic Peptide Total Protein 6.7 D Albumin 3.1 L Lipase 04/18/18 12:54 WBC RBC Hgb Hct MCV MCH MCHC RDW Plt Count MPV Neut % (Auto) Lymph % (Auto) [place] % (Auto) Eos % (Auto) Baso % (Auto) Neut # (Auto) Lymph # (Auto) [place] # (Auto) Eos # (Auto) Baso # (Auto) WBC Differential Differential Comment PT INR APTT 38.5 H D Sodium Potassium Chloride Carbon Dioxide Anion Gap BUN Creatinine Estimated GFR Random Glucose Calcium Magnesium Total Bilirubin AST ALT Alkaline Phosphatase Total Creatine Kinase Troponin I B-Natriuretic Peptide Total Protein Albumin Lipase - Imaging Impressions Chest X-Ray 04/17/18 15:54 CONCLUSION: Cardiomegaly with pulmonary vascular engorgement. Bibasilar consolidation in part due to atelectasis on the left due to an elevated hemidiaphragm. I cannot exclude early pulmonary edema. Assessment and Plan - Plan 72 Y/O male with: Afib with RVR: - Rate controlled on Cardizem drip. 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 Transition to oral Cardizem. Wean off drip - Continue Sotalol - Patient admits to not being consistent with Coumadin and INR is subtherapeutic. Consider switching to NOAC. CAD s/p CABG: - Continue ASA, Mildly Elevated troponin-likely secondary to the afib with RVR - Preserved EF on echo Hx of CHF -would continue lasix and enalapril. WIth rate control he does not appear volume up. He is on sotalol already. EF is normal. Discharge Planning: Possible discharge in AM if rate is controlled.
[2018-04-18] MEDS ORDERED: dilTIAZem Inj 125 MG in Sodium Chlor 0.9% Inj 100 ML IV.CONT PRN (17:14)
[2018-04-18] MEDS: Heparin Drip 25,000 UNIT/250 ML BAG IV.CONT PRN (17:32)
--- NOTE | 2018-04-18 17:48 | ECHRPT ---
Indication: ATRIAL FIB CONCLUSIONS The left ventricular systolic function is low normal with an estimated ejection fraction in the rang e of 50- 55%. Normal left ventricular size. Moderate concentric left ventricular hypertrophy. Left and Right Atrium appear to be normal size. No regional wall motion abnormalities are present. Mild thickening of the mitral valve leaflets. Mild mitral valve regurgitation. The estimated pulmonary arterial pressure is 41.6 mmHg. BP: / HR: Rhythm: Atrial fibrillation MEASUREMENTS (Male / Female) Normal Values Technical Quality:Fair 2D ECHO LVOT Diameter 2.0 cm LA Systolic Diameter LX 3.9 cm 3.0 - 4.0 / 2.7 - 3.8 cm LV Ejection Fraction MOD 4C 58.9 % LV Ejection Fraction 4C AL 60.8 % M-MODE Aortic Root Diameter MM 3.2 cm LA Systolic Diameter MM 3.1 cm LA Ao Ratio MM 1.0 AV Cusp Separation MM 2.2 cm DOPPLER AV Peak Velocity 122.0 cm/s AV Peak Gradient 6.0 mmHg LVOT Peak Velocity 103.0 cm/s LVOT Peak Gradient 4.2 mmHg AV Area Cont Eq pk 2.7 cm MV Area PHT 3.5 cm LV E' Septal Velocity 3.9 cm/s TR Peak Velocity 281.0 cm/s TR Peak Gradient 31.6 mmHg Right Atrial Pressure 10.0 mmHg Pulmonary Artery Systolic Pressu 41.6 mmHg Right Ventricular Systolic Press 41.6 mmHg PV Peak Velocity 99.1 cm/s PV Peak Gradient 3.9 mmHg FINDINGS LEFT VENTRICLE The left ventricular systolic function is low normal with an estimated ejection fraction in the rang e of 50- 55%. Normal left ventricular size. Moderate concentric left ventricular hypertrophy. No regional wall motion abnormalities are present. RIGHT VENTRICLE Normal right ventricular size and systolic function. LEFT ATRIUM The left atrial size is normal. RIGHT ATRIUM The right atrial size is normal. ATRIAL SEPTUM Normal atrial septal thickness without atrial level shunting by limited color doppler interrogation. AORTA The aortic root and proximal ascending aorta are normal in size on limited imaging. MITRAL VALVE Mild thickening of the mitral valve leaflets. Mild mitral valve regurgitation. AORTIC VALVE Trileaflet aortic valve. No aortic valve stenosis or regurgitation. TRICUSPID VALVE Structurally normal tricuspid valve. There is trace tricuspid valve regurgitation. The estimated pulmonary arterial pressure is 41.6 mmHg. PULMONARY VALVE No pulmonary valve regurgitation or stenosis. VESSELS The inferior vena cava is normal in size. PERICARDIUM No pericardial effusion. Paddy Aaron MD (Electronically Signed) Final Date:18 April 2018 17:46
[2018-04-18] MEDS: dilTIAZem 60 MG Tablet PO SCH (22:44)
[2018-04-19] MEDS: Acetaminophen 325 MG Tablet PO PRN ×2 (00:26→09:24)
[2018-04-19 05:47] LABS: INR 1.2 Ratio; Prothrombin Time 12.4 sec (9.8-11.6)
[2018-04-19 06:06] LABS: Hematocrit 36.3 % (39.0-51.0); Hemoglobin 12.1 gm/dL (13.0-17.0); Mean Corpuscular HGB Conc 33.3 % (32.0-36.0); Mean Corpuscular Hemoglobin 29.8 pg (27.0-34.0); Mean Corpuscular Volume 89.6 fL (80.0-100.0); Mean Platelet Volume 8.9 fL (7.0-11.0); Platelet Count 130 th/mm3 (150-450); Red Blood Count 4.06 mil/mm3 (4.50-5.90); Red Cell Distribution Width 14.4 % (11.6-17.2); White Blood Count 6.6 th/mm3 (4.0-11.0)
[2018-04-19] MEDS: dilTIAZem 60 MG Tablet PO SCH (09:23)
[2018-04-19] MEDS: Senna/Docusate Sodium 8.6/50 MG Tablet PO SCH (09:23)
[2018-04-19] MEDS: Sodium Chloride 0.9% 2 ML Flush BID IV.FLUSH SCH (09:24)
[2018-04-19] MEDS: Furosemide 40 MG Tablet PO SCH (09:24)
[2018-04-19 09:53] VITALS: RESP 18
--- NOTE | 2018-04-19 10:21 | P.PNCA ---
Subjective Interval history: No acute events. Wants to go home today. Medications and Allergies Active Medications: Active Medications Acetaminophen (Tylenol) 650 mg PO Q4H PRN PRN Reason: Temp > 100.4 Last Admin: 04/19/18 09:24 Dose: 650 mg Al Hydroxide/Mg Hydroxide (Milk Of Magnesia Liq) 30 ml PO Q12H PRN PRN Reason: Mild Constipation Apixaban (Eliquis) 5 mg PO BID [facility] Aspirin (Ecotrin) 81 mg PO DAILY [facility] Last Admin: 04/19/18 09:24 Dose: 81 mg Bisacodyl (Dulcolax Supp) 10 mg RECTAL DAILY PRN PRN Reason: SEVERE CONSITIPATION Diltiazem HCl (Cardizem) 60 mg PO QID [facility] Last Admin: 04/19/18 09:23 Dose: 60 mg Diltiazem HCl (Cardizem Cd 24hr) 240 mg PO ONCE ONE Stop: 04/19/18 10:16 Enalapril Maleate (Vasotec) 5 mg PO TID [facility] Last Admin: 04/19/18 09:24 Dose: 5 mg Furosemide (Lasix) 40 mg PO DAILY [facility] Last Admin: 04/19/18 09:24 Dose: 40 mg Heparin Sodium (Porcine) (Heparin Inj) 2,500 units IV.PUSH UNSCH PRN PRN Reason: aPTT 25-39 Last Admin: 04/18/18 13:42 Dose: 2,500 units Heparin Sodium (Porcine) (Heparin Inj) 5,000 units IV.PUSH UNSCH PRN PRN Reason: aPTT < 25 Diltiazem HCl 125 mg/ Sodium (Chloride) 125 mls @ 5 mls/hr IV.CONT TITRATE PRN ; Protocol PRN Reason: Per Protocol Lactulose (Lactulose Liq) 30 ml PO DAILY PRN PRN Reason: SEVERE CONSITIPATION Nitroglycerin (Nitro-Bid 2% Oint) 0.5 inch TOPICAL Q6HR [facility] Last Admin: 04/19/18 05:45 Dose: Not Given Ondansetron HCl (Zofran Inj) 4 mg IV.PUSH Q6H PRN PRN Reason: NAUSEA OR VOMITING Patient Own Med- (Sotalol 90 Mg) 0 each PO Q12H [facility] Senna/Docusate Sodium (Nori-Colace) 1 tab PO BID [facility] Last Admin: 04/19/18 09:23 Dose: 1 tab Sennosides (Senokot) 17.2 mg PO Q12H PRN PRN Reason: Moderate Constipation Sodium Chloride (Ns Flush) 2 ml IV.FLUSH BID [facility] Last Admin: 04/19/18 09:24 Dose: 2 ml Sodium Chloride (Ns Flush) 2 ml IV.FLUSH PRN PRN PRN Reason: FLUSH AFTER USING IV ACCESS Tamsulosin HCl (Flomax) 0.4 mg PO HS [facility] Last Admin: 04/18/18 22:44 Dose: 0.4 mg Allergies Allergy/AdvReac Type Severity Reaction Status Date / Time diatrizoate meglumine Allergy Severe Hives Verified 04/17/18 17:22 gadobenic acid Allergy Severe Hives Verified 04/17/18 17:22 gadodiamide Allergy Severe Hives Verified 04/17/18 17:22 gadoteridol Allergy Severe Hives Verified 04/17/18 17:22 iodixanol Allergy Severe Hives Verified 04/17/18 17:22 iohexol Allergy Severe Hives Verified 04/17/18 17:22 pesticide Allergy Intermediate Hives Verified 04/17/18 17:22 Home Medications Medication Instructions Recorded Confirmed Type enalapril maleate 5 mg PO TID 04/17/18 04/17/18 History furosemide 40 mg PO DAILY 04/17/18 04/17/18 History methocarbamol [Robaxin] 500 mg PO QID 04/17/18 04/17/18 History omeprazole 40 mg PO DAILY 04/17/18 04/17/18 History sotalol 90 mg PO Q12H 04/17/18 04/17/18 History tamsulosin 0.4 mg PO HS 04/17/18 04/17/18 History tramadol 50 mg PO QID 04/17/18 04/17/18 History warfarin 5 mg PO BID 04/17/18 04/17/18 History Physical Exam Vital signs: Vital Signs 04/18/18 11:00 04/18/18 12:00 04/18/18 12:08 Temperature Pulse Rate 82 76 Respiratory Rate Blood Pressure Pulse Oximetry 96 04/18/18 12:09 04/18/18 13:00 04/18/18 13:14 Temperature 98.8 F Pulse Rate 72 76 79 Respiratory Rate 17 17 Blood Pressure 112/53 L 113/45 L Pulse Oximetry 96 96 04/18/18 14:00 04/18/18 15:00 04/18/18 16:00 Temperature Pulse Rate 86 78 68 Respiratory Rate Blood Pressure Pulse Oximetry 04/18/18 16:33 04/18/18 17:40 04/18/18 18:00 Temperature 98.6 F Pulse Rate 80 80 Respiratory Rate 18 Blood Pressure 129/59 L Pulse Oximetry 96 04/18/18 19:00 04/18/18 20:00 04/18/18 21:00 Temperature Pulse Rate 84 82 86 Respiratory Rate 16 Blood Pressure 113/50 L Pulse Oximetry 95 04/18/18 22:00 04/18/18 23:00 04/19/18 00:00 Temperature Pulse Rate 86 90 80 Respiratory Rate 18 Blood Pressure 135/89 Pulse Oximetry 96 04/19/18 01:00 04/19/18 02:00 04/19/18 02:53 Temperature Pulse Rate 82 90 Respiratory Rate 18 Blood Pressure Pulse Oximetry 04/19/18 03:00 04/19/18 04:00 04/19/18 05:00 Temperature Pulse Rate 76 90 90 Respiratory Rate 16 Blood Pressure 117/49 L Pulse Oximetry 95 04/19/18 06:00 04/19/18 08:00 Temperature 97.8 F Pulse Rate 88 67 Respiratory Rate 18 Blood Pressure 130/58 L Pulse Oximetry 95 Intake & Output 04/18/18 04/19/18 04/19/18 18:59 06:59 18:59 Intake Total 345 / 345 720 / 720 Output Total 1275 / 1275 Balance 345 / 345 -555 / -555 Weight 149.5 kg Intake: IV 345 / 345 Heparin/D5W 25,000 U/250 mL 25, 180 / 180 000 unit In 250 ml @ 1,000 UNITS/HR 10 mls/hr IV.CONT TITRATE PRN Rx#:[id number] Cardizem Inj 125 MG In NS Inj 165 / 165 100 ML @ 5 MG/HR 5 mls/hr IV. CONT TITRATE PRN Rx#:[id number] Oral 720 / 720 Output: Urine 1275 / 1275 Other: Date of Last Bowel Movement 04/15/18 04/15/18 - Constitutional no acute distress - Routine HEENT Exam Head: Present: normocephalic - Routine Neck Exam Absent: JVD - Routine Respiratory Exam Present: CTA bilaterally - Routine Cardiovascular Exam Present: S1, S2, irregular rhythm - Routine Abdominal Exam Present: normoactive bowel sounds - Routine Neurological Exam Present: alert, oriented X3, CN II-XII intact Results 04/19/18 04:45 04/18/18 05:38 Cardiac Enzymes 04/17/18 04/17/18 04/17/18 Range/Units 16:07 16:07 19:05 AST 24 (15-37) U/L Troponin I 0.05 0.05 (0.02-0.05) ng/mL B-Natriuretic Peptide 147 H (0-100) pg/mL 04/18/18 04/18/18 Range/Units 00:56 05:38 AST 22 (15-37) U/L Troponin I 0.07 H (0.02-0.05) ng/mL B-Natriuretic Peptide (0-100) pg/mL Coagulation 04/17/18 04/17/18 04/17/18 Range/Units 16:07 16:07 19:05 PT 12.7 H 12.8 H (9.8-11.6) sec APTT 27.8 24.7 (24.3-30.1) sec B-Natriuretic Peptide 147 H (0-100) pg/mL 04/17/18 04/18/18 04/18/18 Range/Units 19:05 00:56 05:38 PT Cancelled 13.8 H (9.8-11.6) sec APTT Cancelled 32.0 H D (24.3-30.1) sec B-Natriuretic Peptide (0-100) pg/mL 04/18/18 04/18/18 04/19/18 Range/Units 12:54 20:49 04:45 PT 12.4 H (9.8-11.6) sec APTT 38.5 H D 36.3 H (24.3-30.1) sec B-Natriuretic Peptide (0-100) pg/mL 04/19/18 Range/Units 08:43 PT (9.8-11.6) sec APTT 39.1 H (24.3-30.1) sec B-Natriuretic Peptide (0-100) pg/mL CBC 04/17/18 04/18/18 04/19/18 Range/Units 16:07 05:38 04:45 WBC 11.2 H 8.3 6.6 (4.0-11.0) th/mm3 RBC 4.56 4.26 L 4.06 L (4.50-5.90) mil/mm3 Hgb 13.8 12.8 L 12.1 L (13.0-17.0) gm/dL Hct 42.0 38.9 L 36.3 L (39.0-51.0) % Plt Count 186 136 L 130 L (150-450) th/mm3 Neut # (Auto) 9.7 H 6.5 (1.8-7.7) th/mm3 Lymph # (Auto) 0.8 L 1.1 (1.0-4.8) th/mm3 [place] # (Auto) 0.6 0.7 (0.0-0.9) th/mm3 Eos # (Auto) 0.0 0.0 (0.0-0.4) th/mm3 Baso # (Auto) 0.1 0.0 (0.0-0.2) th/mm3 Comprehensive Metabolic Panel 04/17/18 04/18/18 Range/Units 16:07 05:38 Sodium 139 136 (136-145) meq/L Potassium 4.0 3.7 (3.5-5.1) meq/L Chloride 101 99 (98-107) meq/L Carbon Dioxide 28.2 30.1 (21.0-32.0) meq/L BUN 15 16 (7-18) mg/dL Creatinine 1.03 0.90 (0.60-1.30) mg/dL Calcium 8.4 L 8.6 (8.5-10.1) mg/dL AST 24 22 (15-37) U/L ALT 30 25 (12-78) U/L Alkaline Phosphatase 85 72 (45-117) U/L Total Protein 7.5 6.7 D (6.4-8.2) g/dL Albumin 3.5 3.1 L (3.4-5.0) g/dL Intake and Output 04/18/18 04/19/18 04/19/18 22:59 06:59 14:59 Intake Total 700 / 700 240 / 240 Output Total 600 / 600 675 / 675 Balance 100 / 100 -435 / -435 Intake: IV 220 / 220 Heparin/D5W 25,000 U/250 mL 25, 180 / 180 000 unit In 250 ml @ 1,000 UNITS/HR 10 mls/hr IV.CONT TITRATE PRN Rx#:[id number] Cardizem Inj 125 MG In NS Inj 40 / 40 100 ML @ 5 MG/HR 5 mls/hr IV. CONT TITRATE PRN Rx#:[id number] Oral 480 / 480 240 / 240 Output: Urine 600 / 600 675 / 675 Other: Date of Last Bowel Movement 04/15/18 04/15/18 04/15/18 Weight 149.5 kg - Imaging and Cardiology Imaging: Impressions Chest X-Ray 04/17/18 15:54 CONCLUSION: Cardiomegaly with pulmonary vascular engorgement. Bibasilar consolidation in part due to atelectasis on the left due to an elevated hemidiaphragm. I cannot exclude early pulmonary edema. Assessment and Plan - Plan paroxysmal Afib- echo showed normal EF, no significant valve disease. -continue sotalol -I had a discussion with the patient, given the unreliable nature and difficult to control INR, will place the patient on Eliquis 5 mg po BID. Given nuisance bleeding he maybe a good candidate for Watchman therapy. His [id number] socre is 3. -start Diltiazem 240mg ER po qday. CAD s/p CABG -start ASA 81mg po qday -start Lipitor 10 mg po qhs Hx of CHF -would continue lasix and enalapril. WIth rate control he does not appear volume up. He is on sotalol already. EF is normal. Mildly Elevated troponin-likely secondary to the afib with RVR. No need to trend further. Please call with questions. Thank you. Follow up with Cardiology in 2 weeks.
[2018-04-19] MEDS ORDERED: dilTIAZem CD 240 MG Capsule PO ONE (13:00)
[2018-04-19 13:02] VITALS: BP 156/74; TEMP 97.9; O2SAT 95
--- NOTE | 2018-04-19 13:02 | P.DCO ---
- Diagnosis (1) Physical deconditioning Status: Acute (2) Atrial fibrillation with RVR Status: Acute - Physical Therapy Order: Evaluate and treat, Improve ambulation, Strength and gait training - Home Health Nursing Order: Medical education, Signs/symptoms of disease process, CHF education - Case Management Consult Yes - Certification I have seen patient Salty Castro on 04/19/18. My clinical findings support the need for the requested home health care services because: Patient has SOB, Deconditioned with increased weakness I certify that my clinical findings support that this patient is homebound because: Unsteady gait/balance, Poor cardiac reserve
--- NOTE | 2018-04-19 13:03 | P.DS ---
Date of admission: 04/17/18 17:26 Primary care physician: [facility] Brief History from admission: HPI from the admitting physician: 72 y/o male with a history of afib on anticoagulation, UT and CHF presented to the ED with complaints of chest pain. He states he began having pressure like, constant chest pain today in the center of his chest with radiation to his left chest with associated sob and vomiting. EMS stated that the patient was in atrial fibrillation with RVR, rate in the 170s-180s on scene. EMS provided nitroglycerin, aspirin, and Cardizem intravenously to slow the rate. The patient's rate came down into the 120s. Upon examination patient states he is comfortable, no chest pain or sob at this time. He follows with a senior it business analyst in [facility] at the MD. Denies any fever, chills, headache, nausea, dizziness, or lower extremity weakness. Patient update on day of discharge: Patient reports he is feeling better today. Patient seen with his senior it business analyst at bedside Dr. Aaron. We discussed discharge planning at length. DS: Diagnosis - Discharge Diagnosis (1) Physical deconditioning Status: Acute (2) Atrial fibrillation with RVR Status: Acute DS: Medications - Discharge Medications Prescriptions: apixaban [Eliquis] 5 mg PO BID #60 tab diltiazem HCl [Cardizem CD] 240 mg PO DAILY #30 cap DS: Summary Hospital Course: 72 Y/O male admitted and treated for: Afib with RVR: -Patient initially treated with Cardizem drip. He was followed by cardiology Dr. Aaron. He was transitioned to oral Cardizem. Given his inconsistency with taking Coumadin, he was transitioned to Eliquis. Patient is to continue on sotalol and follow-up outpatient with cardiology. CAD s/p CABG: - Continue ASA, Mildly Elevated troponin-likely secondary to the afib with RVR - Preserved EF on echo Hx of CHF -would continue lasix and enalapril. With rate control he does not appear volume up. He is on sotalol already. EF is normal. - Time Spent with Patient Total time spent providing and/or coordinating discharge services: Less than 30 minutes - Quality: VTE Deep Vein Thrombosis/Pulmonary Embolism Present on Admission: No Exam Vital signs: Vital Signs 04/18/18 13:14 04/18/18 14:00 04/18/18 15:00 Temperature Pulse Rate 79 86 78 Respiratory Rate 17 Blood Pressure 113/45 L Pulse Oximetry 96 04/18/18 16:00 04/18/18 16:33 04/18/18 17:40 Temperature 98.6 F Pulse Rate 68 80 Respiratory Rate 18 Blood Pressure 129/59 L Pulse Oximetry 96 04/18/18 18:00 04/18/18 19:00 04/18/18 20:00 Temperature Pulse Rate 80 84 82 Respiratory Rate 16 Blood Pressure 113/50 L Pulse Oximetry 95 04/18/18 21:00 04/18/18 22:00 04/18/18 23:00 Temperature Pulse Rate 86 86 90 Respiratory Rate Blood Pressure Pulse Oximetry 04/19/18 00:00 04/19/18 01:00 04/19/18 02:00 Temperature Pulse Rate 80 82 90 Respiratory Rate 18 Blood Pressure 135/89 Pulse Oximetry 96 04/19/18 02:53 04/19/18 03:00 04/19/18 04:00 Temperature Pulse Rate 76 90 Respiratory Rate 18 16 Blood Pressure 117/49 L Pulse Oximetry 95 04/19/18 05:00 04/19/18 06:00 04/19/18 07:00 Temperature Pulse Rate 90 88 90 Respiratory Rate Blood Pressure Pulse Oximetry 04/19/18 08:00 04/19/18 09:00 04/19/18 10:00 Temperature 97.8 F Pulse Rate 88 92 H 86 Respiratory Rate 18 Blood Pressure 130/58 L Pulse Oximetry 95 04/19/18 10:17 04/19/18 11:00 04/19/18 12:00 Temperature 97.9 F Pulse Rate 94 H 91 H Respiratory Rate 18 Blood Pressure 156/74 H Pulse Oximetry 94 L 95 04/19/18 13:00 Temperature Pulse Rate 90 Respiratory Rate Blood Pressure Pulse Oximetry Intake & Output 04/18/18 04/19/18 04/19/18 18:59 06:59 18:59 Intake Total 345 / 345 720 / 720 250 / 250 Output Total 1275 / 1275 Balance 345 / 345 -555 / -555 250 / 250 Weight 149.5 kg Intake: IV 345 / 345 250 / 250 Heparin/D5W 25,000 U/250 mL 25, 180 / 180 250 / 250 000 unit In 250 ml @ 1,000 UNITS/HR 10 mls/hr IV.CONT TITRATE PRN Rx#:[id number] Cardizem Inj 125 MG In NS Inj 165 / 165 100 ML @ 5 MG/HR 5 mls/hr IV. CONT TITRATE PRN Rx#:[id number] Oral 720 / 720 Output: Urine 1275 / 1275 Other: Date of Last Bowel Movement 04/15/18 04/15/18 Narrative: GENERAL: This is a well-nourished, well-developed patient, in no apparent distress. CARDIOVASCULAR:rate in the 80's and irregular rhythm without murmurs, gallops, or rubs. RESPIRATORY: Clear to auscultation. Breath sounds equal bilaterally. No wheezes , rales, or rhonchi. GASTROINTESTINAL: Abdomen soft, non-tender, nondistended. Normal active bowel sounds MUSCULOSKELETAL: Extremities without clubbing, cyanosis, or edema. NEURO: Alert & Oriented x4 to person, place, time, situation. Moves all ext x4 Results Procedures completed during hospitalization: None Labs on day of discharge: Labs from last 24 hours 04/19/18 04/19/18 04/19/18 08:43 04:45 04:45 WBC 6.6 RBC 4.06 L Hgb 12.1 L Hct 36.3 L MCV 89.6 MCH 29.8 MCHC 33.3 RDW 14.4 Plt Count 130 L MPV 8.9 PT 12.4 H INR 1.2 APTT 39.1 H 04/18/18 04/18/18 20:49 12:54 WBC RBC Hgb Hct MCV MCH MCHC RDW Plt Count MPV PT INR APTT 36.3 H 38.5 H D - Impressions ITS Impressions Chest X-Ray 04/17/18 15:54 CONCLUSION: Cardiomegaly with pulmonary vascular engorgement. Bibasilar consolidation in part due to atelectasis on the left due to an elevated hemidiaphragm. I cannot exclude early pulmonary edema. Discharge Plan - Discharge Disposition Patient Disposition: W/Home Health Service - Discharge Condition Condition: Stable - Discharge Order Discharge Orders: Discharge Order (Routine); Ordered 04/19/18 Ordered By: Corey Rob - Physicians Team Primary Care Provider: [facility] Attending Provider: Corey Rob Other Providers: Emanuel Block DO
[2018-04-19 14:33] VITALS: PULSE 75
--- NOTE | 2018-04-19 21:34 | ECG ---
Date Performed: 04/18/2018 Time Performed: 10:34:08 PTAGE: 72 years EKG: Atrial fibrillation Left axis deviation IV conduction defect Extensive ST elevation suggest s pericarditis Abnormal ECG PREVIOUS TRACING : 04/18/2018 00.27 Since the previous tracing, no significant change noted DOCTOR: Lalito Malloy Interpretating Date/Time 04/19/2018 21:34:12
== END 2018-04-19 14:43 | disposition home health service (06) ==
LOC: NEPC 15:45 → NEDA 17:26 → HCIS 19:23
PROVIDERS: ADMIT Family Medicine; ATTEND Family Medicine

== ENCOUNTER 2018-04-21 09:54 | Inpatient (IN) ==
[2018-04-21] MEDS ORDERED: Hydrocortisone Sod Succinate 100 MG Vial IV.PUSH ONE (10:14)
[2018-04-21] MEDS ORDERED: Heparin 10,000 UNITS/10 ML Vial (for IV use) IV.PUSH STA (10:14)
[2018-04-21] MEDS ORDERED: Sod Chloride 0.9% Inj 1,000 ML IV.SIG SCH (10:15)
[2018-04-21 10:27] LABS: Baso # (Auto) 0.1 th/mm3 (0.0-0.2); Baso % (Auto) 0.5 % (0.0-2.0); Eos # (Auto) 0.1 th/mm3 (0.0-0.4); Eos % (Auto) 0.9 % (0.0-4.0); Hematocrit 38.5 % (39.0-51.0); Hemoglobin 12.9 gm/dL (13.0-17.0); Lymph # (Auto) 0.5 th/mm3 (1.0-4.8); Lymph % (Auto) 4.3 % (9.0-44.0); Mean Corpuscular HGB Conc 33.5 % (32.0-36.0); Mean Corpuscular Hemoglobin 30.2 pg (27.0-34.0); Mean Corpuscular Volume 90.3 fL (80.0-100.0); Mean Platelet Volume 8.8 fL (7.0-11.0); Mono # (Auto) 0.3 th/mm3 (0.0-0.9); Mono % (Auto) 2.1 % (0.0-8.0); Neut # (Auto) 11.5 th/mm3 (1.8-7.7); Neut % (Auto) 92.2 % (16.0-70.0); Platelet Count 172 th/mm3 (150-450); Red Blood Count 4.27 mil/mm3 (4.50-5.90); Red Cell Distribution Width 14.2 % (11.6-17.2); White Blood Count 12.4 th/mm3 (4.0-11.0)
[2018-04-21] MEDS ORDERED: Heparin 10,000 UNITS/10 ML Vial (for IV use) ONE (10:32)
[2018-04-21] MEDS ORDERED: Heparin/NS PF Inj 500 ML ONE (10:32)
--- NOTE | 2018-04-21 10:33 | ED ---
HPI General Chief Complaint: STEMI Alert Stated Complaint: stemi Time Seen by Provider: 04/21/18 09:58 History of Present Illness HPI narrative: Is a 72-year-old male with a history of coronary artery disease, atrial fibrillation, who presents today with complaints of 10 out of 10 chest pain. Patient called 911 and when paramedics arrived, they found him to be diaphoretic and having nausea vomiting with the chest pain. The patient was given sublingual nitroglycerin and decrease his pain from a 10 out of 10 to a 4 out of 10. Patient was here 3 days ago for similar findings. EKG showed diffuse ST elevation worse in the inferior leads and a STEMI alert was called. The patient was reportedly taken off of his warfarin and started on Eliquis. According to the patient he has not filled his Eliquis prescription and is not been on any anticoagulants for 1 week. Related Data Home Medications Medication Instructions Recorded Confirmed enalapril maleate 5 mg PO BID 04/17/18 04/21/18 furosemide 40 mg PO DAILY 04/17/18 04/21/18 methocarbamol [Robaxin] 500 mg PO QID PRN 04/17/18 04/21/18 omeprazole 40 mg PO DAILY 04/17/18 04/21/18 sotalol 60 mg PO Q12H 04/17/18 04/21/18 tamsulosin 0.4 mg PO HS 04/17/18 04/21/18 tramadol 50 mg PO QID 04/17/18 04/21/18 Previous Rx's Medication Instructions Recorded apixaban [Eliquis] 5 mg PO BID #60 tab 04/19/18 aspirin 81 mg PO DAILY tab 04/19/18 diltiazem HCl [Cardizem CD] 240 mg PO DAILY #30 cap 04/19/18 Allergies Allergy/AdvReac Type Severity Reaction Status Date / Time diatrizoate meglumine Allergy Severe Hives Verified 04/21/18 10:01 gadobenic acid Allergy Severe Hives Verified 04/21/18 10:01 gadodiamide Allergy Severe Hives Verified 04/21/18 10:01 gadoteridol Allergy Severe Hives Verified 04/21/18 10:01 iodixanol Allergy Severe Hives Verified 04/21/18 10:01 iohexol Allergy Severe Hives Verified 04/21/18 10:01 pesticide Allergy Intermediate Hives Verified 04/21/18 10:01 Review of Systems ROS: all other systems reviewed are negative Constitutional Reports system reviewed and no additional complaints, except [facility] Eyes Reports system reviewed and no additional complaints, except as [facility] ENT Reports system reviewed and no additional complaints, except as [facility] Cardiovascular Reports chest pain, Reports diaphoresis and Reports dyspnea Respiratory Denies chest congestion, Denies cough and Reports dyspnea Gastrointestinal Denies abdominal pain, Reports nausea and Reports vomiting Genitourinary Reports system reviewed and no additional complaints, except as [facility] Musculoskeletal Reports system reviewed and no additional complaints, except as [facility] Neurologic Reports system reviewed and no additional complaints, except as [facility] PMFSH Social History Social History Substance History: No History of Abuse Second Hand Smoke Exposure: No Smoking Status: Never smoker How Often Do You Have a Drink Containing Alcohol: Never Recent Travel in [facility] within the Last 8 Weeks: No Recent Out of Country Travel within the Last 8 Weeks: No Immunization History Tetanus Immunization: Unsure Exam Narrative Exam Narrative: GENERAL: Well-developed well-nourished male in no acute respiratory distress. SKIN: Focused skin assessment warm/dry. HEAD: Atraumatic. Normocephalic. EYES: Pupils equal and round. No scleral icterus. No injection or drainage. ENT: No nasal bleeding or discharge. Mucous membranes pink and moist. NECK: Trachea midline. Supple. CARDIOVASCULAR: Irregularly irregular with a rate in the 80s and 90s. No murmur appreciated. RESPIRATORY: No accessory muscle use. Clear to auscultation. Breath sounds equal bilaterally. GASTROINTESTINAL: Abdomen soft, non-tender, nondistended. Hepatic and splenic margins not palpable. MUSCULOSKELETAL: No obvious deformities. No clubbing. No cyanosis. 2+ pitting edema in the pretibial areas. NEUROLOGICAL: Awake and alert. No obvious cranial nerve deficits. Motor grossly within normal limits. Normal speech. Course Initial Documented Vital Signs Pulse Rate 104 H 04/21/18 09:56 Respiratory Rate 24 04/21/18 09:56 Blood Pressure 150/73 H 04/21/18 09:56 Pulse Oximetry 95 04/21/18 09:56 Last Documented Vital Signs Temperature 100.2 F H 04/21/18 10:09 Pulse Rate 102 H 04/21/18 10:26 Respiratory Rate 24 04/21/18 10:26 Blood Pressure 120/79 04/21/18 10:26 Pulse Oximetry 93 L 04/21/18 10:26 Medical Decision Making MDM Narrative Medical decision making narrative: This is a 72-year-old male with history of coronary artery disease, atrial fibrillation, presents today with complaints of chest pain. Patient was called a STEMI alert in the field the patient has diffuse ST elevation and when compared with EKG from 3 days ago, it appears more pronounced in the inferior leads with [place] in appearance. The patient was given aspirin and nitro in the field. He was also given a bolus of heparin. Case was discussed with Dr. Hodges who will arrange to taken to the Executive Director. Unfortunately patient has a allergy to dye and therefore was given 100 mg of IV Solu-Cortef. Dr. Hodges also recommended Benadryl however IV Benadryl is out of stock in this hospital at this point. Medical Screen Exam Complete: Yes Emergency Medical Condition: Yes Differential Diagnosis Differential Diagnosis: ACS versus muscular skeletal pain versus GERD Lab Data Result diagrams: 04/21/18 10:05 Discharge Plan Discharge Disposition Patient Disposition: 30 Still Patient Discharge Details Diagnosis: ST elevation myocardial infarction (STEMI), Physical deconditioning, Atrial fibrillation Physicians Team ED Provider: Edward Camarena Rxs /Orders / Referrals /Forms Prescriptions: No Action enalapril maleate 5 mg Tablet 5 mg PO BID RF: 0 furosemide 40 mg Tablet 40 mg PO DAILY RF: 0 omeprazole 40 mg Capsule,Delayed Release(Dr/Ec) 40 mg PO DAILY RF: 0 tamsulosin 0.4 mg Capsule 0.4 mg PO HS RF: 0 methocarbamol [Robaxin] 500 mg Tablet 500 mg PO QID PRN (Reason: Pain) RF: 0 tramadol 50 mg Tablet 50 mg PO QID RF: 0 sotalol 160 mg Tablet 60 mg PO Q12H RF: 0 aspirin 81 mg Tablet,Delayed Release (Dr/Ec) 81 mg PO DAILY RF: 0 diltiazem HCl [Cardizem CD] 240 mg Capsule,Extended Release 24hr 240 mg PO DAILY Qty: 30 RF: 0 apixaban [Eliquis] 5 mg Tablet 5 mg PO BID Qty: 60 RF: 0 Discharge Interventions Interventions: Vital Signs Last Done: 04/21/18 10:26 Status ED Status: With Doctor
--- NOTE | 2018-04-21 10:34 | XR ---
EXAM DATE: 04/21/2018 10:09 AM EDT AGE/SEX: 72 years / Male INDICATIONS: Bilateral chest pain and shortness of breath. CLINICAL DATA: This is the patient's initial encounter. Patient reports that signs and symptoms have been present for 1 day and indicates a pain score of 7/10. MEDICAL/SURGICAL HISTORY: Myocardial infarction. Congestive heart failure. Chronic obstructiv e pulmonary disease. Atrial fibrillation. Hypertension. CABG. COMPARISON: [facility] [place] [facility] [place] 1V SINGLE AP, 04/17/2018. . FINDINGS: AP portable semiupright view of the chest demonstrate significant cardiomegaly. Diffuse pulmonary vas culature cephalization and hazy indistinctness of the adjacent parenchyma. The left hemidiaphragm is obscured and there is poor visualization of the left cardiac border. CONCLUSION: Significant cardiomegaly with radiographic findings consistent with congestive heart failure and pulm onary edema. Left lower lobe atelectasis versus airspace consolidation. Electronically signed by: Jannet Castro MD 04/21/2018 10:32 AM EDT
[2018-04-21 10:36] LABS: Activated Partial Thrombo Time 27.9 sec (24.3-30.1); INR 1.2 Ratio; Prothrombin Time 11.7 sec (9.8-11.6)
[2018-04-21 10:39] LABS: Calcium 8.3 mg/dL (8.5-10.1)
[2018-04-21] MEDS ORDERED: fentaNYL Citrate Inj 100 MCG/2 ML Ampul ONE (10:49)
[2018-04-21 10:56] LABS: Magnesium 1.8 mg/dL (1.5-2.5); Troponin I 0.02 ng/mL (0.02-0.05)
[2018-04-21] MEDS ORDERED: Sodium Chlor 0.9% Inj 250 ML IV.SIG ONE (11:11)
[2018-04-21] MEDS ORDERED: Atropine Inj 1 MG/ML Vial IV.PUSH PRN (11:11)
--- NOTE | 2018-04-21 11:22 | P.CONCA ---
History of Present Illness Service: Cardiology Consult date: 04/21/18 Reason for Consult: Chest pain Primary Care Provider: [facility] Chief Complaint: ST elevation myocardial infarction History of Present Illness: This is a 72-year-old male who presents now with acute onset of chest pain symptoms. Patient had recently been seen and followed in the hospital by Dr. Aaron from [facility] with mildly elevated troponin and atrial fibrillation. Patient was discharged yesterday and seemed to be doing well. This morning he had an acute onset of chest pain while drinking coffee. Patient came into the emergency department with ongoing symptoms. Electrocardiogram has a base Right bundle branch block with apparent new ST elevation and ST elevation myocardial infarction protocol initiated. Initially they called [facility], but they stated that they do not follow him in outpatient setting, so they called me, the on-call regional flatbed truck driver. Patient chest pain had resolved by the time he was brought up to the cardiac catheterization lab. Review of Systems All other systems reviewed negative except as stated in HPI [facility] - History History Provided By: Patient - Medical History Medical History: Medical History (Last Reviewed 04/21/18 @ 10:00 by Sowmya Rod) A-fib CHF (congestive heart failure) Heart attack - Surgical History Surgical History: Surgical History (Last Reviewed 04/21/18 @ 10:00 by Sowmya Rod) S/P CABG x 2 - Family History Family History: Family History (Last Reviewed 04/17/18 @ 20:12 by ANUSHKA Mims) Other Heart disease - Tobacco History Second Hand Smoke Exposure: No Smoking Status: Never smoker - Alcohol History How Often Do You Have a Drink Containing Alcohol: Never - Substance Use History Substance History: No History of Abuse - Travel History Recent Travel in the [place] Within the Last 8 Weeks: No Recent Travel Out of the Country Within the Last 8 Weeks: No - Immunization History Tetanus Immunization: Unsure Medications and Allergies Active Medications: Active Medications Atropine Sulfate (Atropine Inj) 0.5 mg IV.PUSH UNSCH PRN PRN Reason: VAGAL REPONSE Sodium Chloride (Ns Inj) 250 mls @ 500 mls/hr IV.SIG ONCE ONE Stop: 04/21/18 11:40 Miscellaneous Medication ([facility] [place] [place] Pharmacy Information) 1 each OTHER ONCE ONE Stop: 04/21/18 11:12 Oxycodone/Acetaminophen (Percocet 5/325 Mg) 1 tab PO Q4H PRN PRN Reason: PAIN SCALE 1 TO 4 Sodium Chloride (Ns Flush) 2 ml IV.FLUSH BID HERNÁN Sodium Chloride (Ns Flush) 2 ml IV.FLUSH PRN PRN PRN Reason: FLUSH AFTER USING IV ACCESS Allergies Allergy/AdvReac Type Severity Reaction Status Date / Time diatrizoate meglumine Allergy Severe Hives Verified 04/21/18 10:01 gadobenic acid Allergy Severe Hives Verified 04/21/18 10:01 gadodiamide Allergy Severe Hives Verified 04/21/18 10:01 gadoteridol Allergy Severe Hives Verified 04/21/18 10:01 iodixanol Allergy Severe Hives Verified 04/21/18 10:01 iohexol Allergy Severe Hives Verified 04/21/18 10:01 pesticide Allergy Intermediate Hives Verified 04/21/18 10:01 Home Medications Medication Instructions Recorded Confirmed Type enalapril maleate 5 mg PO BID 04/17/18 04/21/18 History furosemide 40 mg PO DAILY 04/17/18 04/21/18 History methocarbamol [Robaxin] 500 mg PO QID PRN 04/17/18 04/21/18 History omeprazole 40 mg PO DAILY 04/17/18 04/21/18 History sotalol 60 mg PO Q12H 04/17/18 04/21/18 History tamsulosin 0.4 mg PO HS 04/17/18 04/21/18 History tramadol 50 mg PO QID 04/17/18 04/21/18 History Exam Vital signs: Vital Signs 04/21/18 09:56 04/21/18 10:09 04/21/18 10:14 Temperature 100.2 F H Pulse Rate 104 H 122 H 120 H Respiratory Rate 24 28 H Blood Pressure 150/73 H 140/75 Pulse Oximetry 95 96 96 04/21/18 10:26 Temperature Pulse Rate 102 H Respiratory Rate 24 Blood Pressure 120/79 Pulse Oximetry 93 L Intake & Output 04/20/18 04/21/18 04/21/18 18:59 06:59 18:59 Weight 147.418 kg - Constitutional no acute distress - Routine HEENT Exam Head: Present: normocephalic Eye: Present: PERRL ENT: Present: mucous membranes moist - Routine Neck Exam Absent: JVD - Routine Respiratory Exam Present: CTA bilaterally - Routine Cardiovascular Exam Present: irregularly irregular - Routine Abdominal Exam Present: soft - Routine Neurological Exam Present: oriented X3, CN II-XII intact. Absent: sensory deficit, motor deficit Results 04/21/18 10:05 Cardiac Enzymes 04/21/18 04/21/18 Range/Units 10:05 10:05 Troponin I 0.02 (0.02-0.05) ng/mL B-Natriuretic Peptide 154 H (0-100) pg/mL Coagulation 04/21/18 04/21/18 Range/Units 10:05 10:05 PT 11.7 H (9.8-11.6) sec APTT 27.9 (24.3-30.1) sec B-Natriuretic Peptide 154 H (0-100) pg/mL CBC 04/21/18 Range/Units 10:05 WBC 12.4 H (4.0-11.0) th/mm3 RBC 4.27 L (4.50-5.90) mil/mm3 Hgb 12.9 L (13.0-17.0) gm/dL Hct 38.5 L (39.0-51.0) % Plt Count 172 D (150-450) th/mm3 Neut # (Auto) 11.5 H (1.8-7.7) th/mm3 Lymph # (Auto) 0.5 L (1.0-4.8) th/mm3 [place] # (Auto) 0.3 (0.0-0.9) th/mm3 Eos # (Auto) 0.1 (0.0-0.4) th/mm3 Baso # (Auto) 0.1 (0.0-0.2) th/mm3 Comprehensive Metabolic Panel 04/21/18 Range/Units 10:05 Calcium 8.3 L (8.5-10.1) mg/dL Intake and Output 04/20/18 04/21/18 04/21/18 22:59 06:59 14:59 Other: Weight 147.418 kg Patient Weight 04/22/18 06:59 Weight 147.418 kg - Imaging and Cardiology Imaging: Impressions Chest X-Ray 04/21/18 10:09 CONCLUSION: Significant cardiomegaly with radiographic findings consistent with congestive heart failure and pulmonary edema. Left lower lobe atelectasis versus airspace consolidation. EKG interpretations - Dysrhythmias Supraventricular dysrhythmia: atrial fibrillation - Blocks, axis, hypertrophy, ST abn AV and intraventricular conduction: right bundle branch block (fixed/ intermittent, complete/incomplete) Repolarization changes or abnormalities: ST suggestive of injury Assessment and Plan - Assessment (1) STEMI (ST elevation myocardial infarction) Code(s): I21.3 - ST elevation (STEMI) myocardial infarction of unspecified site Status: Acute (2) Atrial fibrillation with RVR Code(s): I48.91 - Unspecified atrial fibrillation Status: Acute (3) Atrial fibrillation Code(s): I48.91 - Unspecified atrial fibrillation Status: Acute - Plan Patient be brought to the cardiac catheterization lab emergently. Cardiac catheterization was performed which showed 2 vessel bypass without high- grade obstruction requiring intervention. Grafts were widely patent. Patient' s symptoms resolved. Patient does have baseline right bundle branch block. Symptoms do not appear to be underlying cardiac etiology. Possibly related to esophageal spasm relieved with nitroglycerin in the emergency department. Patient will be reinitiated on guideline directed medical therapy with the same medication regimen that he was on yesterday when discharged. Patient was noncompliant with his anticoagulation. Patient can be discharged tomorrow and follow-up with outpatient regional flatbed truck driver. Remainder workup per hospitalist group. Call with questions. We will sign off. (3) Atrial fibrillation Qualifiers: Atrial fibrillation type: unspecified Qualified Code(s): I48.91 - Unspecified atrial fibrillation
--- NOTE | 2018-04-21 11:22 | CATHPROC ---
[employer] - Payments Anytime | Anywhere HIS Report Study Information Study Number Admission Scheduled Start Study Start [id number] Apr 21 2018 9:54AM 04/21/2018 Apr 21 2018 10:33AM [facility] Service Cardiac Catheterization Admit Source Facility Department Other [facility] - Rotary Planer Set Up Operator Physician and Clinical Staff Initial Constantin Moore Environmental Scientistsmona Jerez RN, Shashi Environmental ScientistsMarc Jennings,RN Recorder Tanisha Juan ,RT(R) Scrub Beatriz Dia,CAR TOP BOLTER TECH2 Procedures Performed Procedure Location (Site) Vessel Name Angiogram LV LV Ventricle Coronary Angiograms LCA Left Coronary Coronary Angiograms RCA Right Coronary Coronary Angiograms COLLINS-LAD Left Coronary Coronary Angiograms SVG-OM CIRC L Heart Cath Equipment Time Power Generation Plant Operator Description Size Mfg Part Number Used/Scraped TRANSDUCER, TRUWAVE [id number] 10:36 HAMM ROMERO * Used W/STOCKCOCK *[id number] *[id number] *[id number] *[id number] 11:05 DAIG/[facility]. DANIELA MEDICAL ANGIOSEAL, FR6 VIP FR 6 Used *[id number] 10:36 Ungalli BLANKET,WARM AIR CCL * Used *[id number] 10:36 [employer]galli PACK, CCL CUSTOM * Used *[id number] 10:36 Idea2 PACER PEN, SKIN DUAL W/ RULER * Used *[id number] PIG ANG 145 DXTERITY 11:02 MEDTRONIC FR 6 [id number] Used CATHETER [id number] 10:52 LearnUp MEDICAL SHEATH, FR6.5 PRELUDE 11CM FR 6.5 038ACT Used *[id number] 10:36 [employer] MEDICAL WIRE, 3MMJ .035 180CM 180CM Used *[id number] 10:36 NAMIC MANIFOLD, 4 PORT * Used *[id number] 11:02 NAMIC TUBING, HIGH PRESSURE 48" 48" Used *[id number] 10:36 NYCOMED OMNIPAQUE, 350 MG, 150ML 150ML [id number] Used [id number] 10:36 TERUMO MEDICAL SHEATH, FR5 TERUMO (10CM) FR 5 Used *[id number] Equipment Model, Serial, Lot Number and Expiration Data Description Model Number Serial Number Lot Number Expiration Date ANGIOSEAL, FR6 VIP [id number] 11-05-2018 History: Allergies Allergy Reaction iohexol Hives diatrizoate meglumine Hives gadoteridol Hives gadodiamide Hives iodixanol Hives gadobenic acid Hives pesticide Hives History: Risk Factors Previous MO Previous Heart Failure Yes No Prior Valve Prior PCI Prior CABG Surgery No No Yes Cerebrovascular Peripheral Artery Chronic Lung On Dialysis Diabetes Disease Disease Disease No No No No No Labs Hgb (g/dl) Hct (%) WBC (l/cumm) Platelets (thousands) 11.60-17.00 35.00-51.00 4.00-11.00 150.00-450.00 12.9 38.5 12.4 172 BUN (mg/dl) Creatinine (mg/dl) BUN:Creatinine (1:x) 7.00-18.00 0.50-1.30 10.00-20.00 15 0.9 16.7 Na (meq/l) K (meq/l) 136.00-145.00 3.50-5.10 139 4.1 INR (PTT:PT) 0.90-1.10 1.2 CPK-MB (ng/ML) 0.50-3.60 Not Drawn Medication Medication Total Dose (Bolus/Oral) Medication Total Dosage/Unit 1% XYLOCAINE 15 mL ASPIRIN 324 mg BENADRYL 50 mg FENTANYL 25 mcg VERSED 1 mg Medications (Bolus/Oral) Medication Time Given Dosage/Unit Administered By Reason 04/21/2018 10:45:23 BENADRYL 50 mg Shashi Jerez RN, AM 50 mg BENADRYL given in lab by Shashi Jerez RN via Peripheral IV. Ordered by Constantin Hodges. 04/21/2018 10:46:34 ASPIRIN 324 mg Shashi Jerez RN, AM 324 mg ASPIRIN given in lab by Shashi Jerez RN via Oral. Ordered by Constantin Hodges. 04/21/2018 10:50:00 1% XYLOCAINE 15 mL Shashi Jerez RN AM 15 mL 1% XYLOCAINE given in lab by Shashi Jerez RN in Right Groin via Subcutaneous. Ordered by Constantin Hodges. 04/21/2018 10:50:57 VERSED 1 mg Marc Alvarenga AM 1 mg VERSED given in lab by Marc Alvarenga RN via Peripheral IV. Ordered by Constantin Hodges. 04/21/2018 10:51:06 FENTANYL 25 mcg Marc Alvarenga AM 25 mcg FENTANYL given in lab by Marc Alvarenga RN via Peripheral IV. Ordered by Constantin Hodges. Medication (Drip) Medication Time Given Dosage/Unit Concentration/Unit Diluent (ml) Solution 04/21/2018 10:44:49 IV Solutions 50 mL (IV) NaCl .9 AM Patient arrived on IV Solutions via Peripheral IV. Pump/Drip Flow using NaCl .9. Initial Case Assessment Cardiovascular HR Rhythm NIBP 104 stemi 148/84 Edema Present Skin color Skin None Normal Warm Dry Circulatory - Right Pulses Dorsalis Pedis Femoral 2 2 Scale (0,1,2,3,4,d) Circulatory - Left Pulses Dorsalis Pedis Femoral 2 2 Scale (0,1,2,3,4,d) Neurological State Oriented to time-place- Alert Moves all extremities person Respiration - General Respiration Rate SpO2 (%) (B/min) 20 97 Final Case Assessment Cardiovascular HR Rhythm NIBP 88 stemi 148/86 Edema Present Skin color Skin None Normal Warm Dry Circulatory - Right Pulses Dorsalis Pedis Femoral 2 2 Scale (0,1,2,3,4,d) Circulatory - Left Pulses Dorsalis Pedis Femoral 2 2 Scale (0,1,2,3,4,d) Neurological State Oriented to time-place- Alert Moves all extremities person Respiration - General Respiration Rate SpO2 (%) (B/min) 20 97 Chronological Log Time Study Chronological Log 10:30:39 ER was notified to bring patient 10:38:27 Patient arrived via Bed. 10:38:28 Patient Name, D.O.B, / Armband Verified By R.N. 10:43:49 MD arrived. 10:44:36 Consent signed by the physician and the patient and verified by the Rotary Planer Set Up Operator staff. 10:44:37 Pre-op and post- op instructions given; patient acknowledges understanding of instructions. 10:44:43 Patient has been NPO for Less than 6Hrs. 10:44:44 Skin Breakdown- none per patient 10:44:45 Patient Warmer Placed on the Table. 10:44:45 Disposable Defibrillator Pads Placed On Patient. 10:44:46 Pao Prominences Protected 10:44:46 A # 20 IV was noted in the Antecubital (left). Grade = 0 10:44:49 A # 20 IV was noted in the Antecubital (right). Grade = 0 10:44:49 Patient arrived on IV Solutions via Peripheral IV. Pump/Drip Flow using NaCl .9. 10:44:52 History and physical on the chart or being dictated. Assessment: Initial Case, QX=003 BPM, Rhythm=stemi, KLTS=706/84 mmhg, Edema=None, Color=Normal, Skin = Warm, Dry Right Pulses: Luis Ped=2, Femoral=2 10:44:54 Left Pulses: Luis Ped=2, Femoral=2 Neurological: State=Alert, Ox3, LAWS Respiration: Resp=20 B/min, SpO2=97 % Vitals capture started with the following parameters, Patient=Adult, Interval=5 min, Initial Pr epouty=898 mmHg, 10:44:59 Deflation Rate=5 mmHg, Cuff placed on Left Arm 10:45:06 Bilateral groins prepped with 2% chlorhexidine, and draped after a 3 minute waiting time. 10:45:23 50 mg BENADRYL given in lab by Shashi Jerez RN via Peripheral IV. Ordered by Constantin Hodges . 10:45:39 XN=265 bpm, MKZW=465/84 mmhg, SpO2=97.0 %, Resp=20 B/min 10:46:34 324 mg ASPIRIN given in lab by Shashi Jerez RN via Oral. Ordered by Constantin Hodges. 10:48:47 Reference ECG taken 10:48:58 Pressure channel 2 zeroed. Time Out. Correct patient, correct procedure, correct physician, labs, allergies, and equipment verified with brush clearing laborer 10:49:12 team present. Fire risk assesment completed (see hard stop sheet for coding). Time Out Conc urred by MD and individual staff in procedure. 10:49:59 Case Start 10:50:00 15 mL 1% XYLOCAINE given in lab by Shashi Jerez RN in Right Groin via Subcutaneous. Ordered by Constantin Hodges. 10:50:38 KN=041 bpm, XFFF=497/87 mmhg, SpO2=97.0 %, Resp=14 B/min 10:50:57 1 mg VERSED given in lab by Marc Alvarenga RN via Peripheral IV. Ordered by Constantin Hodges. 10:51:06 25 mcg FENTANYL given in lab by Marc Alvarenga RN via Peripheral IV. Ordered by Elizabeth Hodges. 10:52:03 Access site was Right Femoral Artery. 10:52:11 A SHEATH, FR6.5 PRELUDE 11CM FR 6.5 was advanced into the Fem Art (right) using the Percuta neous technique. A JL 4.0 INFINITI CATHETER FR 6 was advanced over a wire. OMNIPAQUE, 350 MG, 150ML 150ML was us ed for 10:52:26 injections. 10:53:58 The LCA was injected and visualized at various angles. OMNIPAQUE, 350 MG, 150ML 150ML used . After removing the current catheter a JR 4.0 INFINITI CATHETER FR 6 was advanced over a WIRE, 3 MMJ .035 180CM 10:54:17 180CM. 10:55:41 MQ=336 bpm, LYYD=611/80 mmhg, SpO2=97.0 %, Resp=33 B/min 10:55:57 The RCA was injected and visualized at various angles. OMNIPAQUE, 350 MG, 150ML 150ML used . 10:57:18 The SVG-OM was injected and visualized at various angles. OMNIPAQUE, 350 MG, 150ML 150ML us ed. After removing the current catheter a BASSAM INFINITI CATHETER FR 6 was advanced over a WIRE, 3MMJ .035 180CM 10:58:08 180CM. 10:59:47 The COLLINS-LAD was injected and visualized at various angles. OMNIPAQUE, 350 MG, 150ML 150ML used. Recorded Pressure: Ao, HE=916, Condition=Condition 1 11:00:08 (Aorta) Ao 125/75/95 11:00:34 HR=98 bpm, NYJL=159/82 mmhg, SpO2=97.0 %, Resp=28 B/min After removing the current catheter a PIG ANG 145 DXTERITY CATHETER FR 6 was advanced over a WI RE, 3MMJ .035 11:01:11 180CM 180CM. 11:03:34 The LV was injected at 10 cc/sec for a total of 30. OMNIPAQUE, 350 MG, 150ML 150ML used. 11:05:00 Catheter was removed 11:05:02 An injection in the Fem Art (right) was made through the SHEATH, FR6.5 PRELUDE 11CM FR 6.5. 11:05:37 YA=577 bpm, CKYP=338/86 mmhg, SpO2=97.0 %, Resp=31 B/min 11:06:11 ANGIOSEAL, FR6 VIP FR 6 placement in the Fem Art (right) 11:06:47 Case End (Physician broke scrub) Assessment: Final Case, HR=88 BPM, Rhythm=stemi, ZTJN=792/86 mmhg, Edema=None, Color=Normal, S kin = Warm, Dry Right Pulses: Luis Ped=2, Femoral=2 11:07:02 Left Pulses: Luis Ped=2, Femoral=2 Neurological: State=Alert, Ox3, LAWS Respiration: Resp=20 B/min, SpO2=97 % 11:08:01 Catheter(s) removed without difficulty 11:08:27 Sterile dressing applied to site 11:08:32 No case complications noted. 11:08:33 Cine recording checked. 11:08:34 Bedside Report will be given. 11:08:36 A Left Heart Cath was performed. 11:11:05 JA=285 bpm, QYSM=177/79 mmhg, SpO2=97.0 %, Resp=33 B/min 11:18:33 Patient moved to [facility] End Study - Contrast Media Used In Study Contrast Total Opened (mL) Total Used (mL) Total Wasted (mL) Omnipaque 115 115 0 End Study - Maximum Contrast Load Max Contrast Load (mL) 818.9 End Study - Radiation Exposure Fluoro Time (minutes) 3.3 End Study - Sheaths Sheaths Pulled By Sheath Hold Time (min) Minor, Constantin End Study - Patient Disposition Complications Transferred To Interventional Outcome No Critical Care Bed No attempt made
--- NOTE | 2018-04-21 11:26 | P.PCN ---
Date of procedure: 04/21/18 Pre-op diagnosis: ST elevation myocardial infarction Post-op diagnosis: other (Noncardiac chest pain) Procedure: Procedures performed: 1. Fluoroscopy with interpretation 2. Coronary angiography 3. Coronary artery bypass angiography 4. Ascending aortography Methods: Risks, benefits, and alternatives were discussed with the patient. Patient understood consented to the procedure. Patient was brought into the cardiac catheterization lab and placed on the catheterization table. Right groin was prepped and draped in sterile fashion right groin was anesthetized with 2% lidocaine. Right common femoral artery was cannulated and a 6 Nigerian 11 cm sheath was placed without difficulty. Coronary angiography: 1. Left main coronary artery normal 2. Left anterior descending coronary artery has mild luminal irregularities in the proximal segment with an 80% stenosis in the midsegment and competitive flow distally with a small distal left anterior descending coronary vessel 3. Left circumflex gives rise to a large first obtuse marginal branch with a 90 % stenosis in the proximal segment 4. Right coronary dominant vessel there is a posterior descending coronary artery. Right coronary has mild irregularities Coronary artery bypass graft angiography: 1. Left internal mammary to left anterior descending coronaries widely patent 2. Saphenous vein graft to the first obtuse marginal branch is widely patent next Descending aortography: 6 Nigerian pigtail catheter was advanced descending aorta. Ascending aortography was performed with a 30 cc contrast injection good opacification. Descending aorta is not dilated. There is no evidence for dissection. Conclusions: 1. Severe 2 vessel pilot point coronary disease 2. 2/2 coronary bypass grafts widely patent 3. Normal ascending aorta Plan: Symptoms appear to be primary noncardiac etiology. There was some relief with nitroglycerin suggestive maybe was esophageal spasm. Patient was drinking coffee at the time. Patient has atrial fibrillation which is chronic. Will need to be initiated back on his anticoagulation regimen upon discharge. Call with any further questions.
--- NOTE | 2018-04-21 14:40 | ECG ---
Date Performed: 04/21/2018 Time Performed: 09:58:21 PTAGE: 72 years EKG: ATRIAL FIBRILLATION WITH RAPID VENTRICULAR RESPONSE MARKED LEFT AXIS DEVIATION INTRAVENTRIC ULAR CONDUCTION DELAY ABNORMAL ECG Compared to PREVIOUS TRACING , ventricular response to the atrial fibrillation is somewhat faster. Th ere is still some slight ST elevation inferolaterally of undetermined cause. This may be due to the c onduction abnormality, pericarditis cannot be excluded. PREVIOUS TRACIN04/18/2018 10.34 DOCTOR: Gorge Magana Interpretating Date/Time 04/21/2018 14:40:43
[2018-04-21] MEDS ORDERED: SOTALOL PO SCH (21:00)
[2018-04-22 04:14] VITALS: O2SAT 96
[2018-04-22 05:48] LABS: Baso # (Auto) 0.1 th/mm3 (0.0-0.2); Baso % (Auto) 0.7 % (0.0-2.0); Eos # (Auto) 0.1 th/mm3 (0.0-0.4); Eos % (Auto) 0.9 % (0.0-4.0); Hematocrit 36.3 % (39.0-51.0); Hemoglobin 12.3 gm/dL (13.0-17.0); Lymph # (Auto) 1.6 th/mm3 (1.0-4.8); Lymph % (Auto) 15.2 % (9.0-44.0); Mean Corpuscular HGB Conc 33.9 % (32.0-36.0); Mean Corpuscular Hemoglobin 30.2 pg (27.0-34.0); Mean Platelet Volume 8.7 fL (7.0-11.0); Mono # (Auto) 0.8 th/mm3 (0.0-0.9); Mono % (Auto) 7.3 % (0.0-8.0); Neut % (Auto) 75.9 % (16.0-70.0); Platelet Count 146 th/mm3 (150-450); Red Blood Count 4.07 mil/mm3 (4.50-5.90); Red Cell Distribution Width 14.5 % (11.6-17.2); White Blood Count 10.5 th/mm3 (4.0-11.0)
[2018-04-22 06:16] LABS: Calcium 8.6 mg/dL (8.5-10.1); Carbon Dioxide 30.6 meq/L (21.0-32.0); Potassium 3.8 meq/L (3.5-5.1)
[2018-04-22] MEDS ORDERED: Iohexol 350 MG/ML 100 ML Vial (for Cath Lab) IVCONTRAST ONE (09:12)
[2018-04-22] MEDS ORDERED: Iohexol 350 MG/ML 50 ML Vial (for Cath Lab) IVCONTRAST ONE (09:12)
--- NOTE | 2018-04-22 09:38 | P.CONIM ---
History of Present Illness Service: [facility] Reason for Consult: Medical management Primary Care Provider: Physician [facility] Chief Complaint: ST elevation myocardial infarction History of Present Illness: 72-year-old male recently admitted for A. fib with RVR, discharge yesterday who presented to the emergency room with complaint of chest pain. STEMI alert was called. Patient underwent heart catheterization. I discussed the case with shut off worker, Dr. clark. There were no acute obstruction found on the heart catheterization. His grafts were patent. Esophageal spasm is on the differential since his symptoms started as he was drinking coffee. On my evaluation today, the patient denies any chest pain or shortness of breath. He feels great. Review of Systems All other systems reviewed negative except as stated in HPI [facility] - History History Provided By: Patient - Medical History Medical History: Medical History (Last Reviewed 04/22/18 @ 18:00 by Corey Rob MD) A-fib CHF (congestive heart failure) Heart attack - Surgical History Surgical History: Surgical History (Last Reviewed 04/22/18 @ 18:00 by Corey Rob MD) S/P CABG x 2 - Family History Family History: Family History (Last Reviewed 04/22/18 @ 18:00 by Corey Rob MD) Other Heart disease - Tobacco History Second Hand Smoke Exposure: No Smoking Status: Never smoker - Alcohol History How Often Do You Have a Drink Containing Alcohol: Never - Substance Use History Substance History: No History of Abuse - Travel History Recent Travel in the [place] Within the Last 8 Weeks: No Recent Travel Out of the Country Within the Last 8 Weeks: No - Immunization History Tetanus Immunization: Unsure Hx Influenza Vaccine This Season: No Medications and Allergies Active Medications: Active Medications Apixaban (Eliquis) 5 mg PO BID [facility] Last Admin: 04/22/18 08:50 Dose: 5 mg Atropine Sulfate (Atropine Inj) 0.5 mg IV.PUSH UNSCH PRN PRN Reason: VAGAL REPONSE Enalapril Maleate (Vasotec) 5 mg PO BID [facility] Last Admin: 04/22/18 08:50 Dose: 5 mg Sodium Chloride (Ns Inj) 1,000 mls @ 30 mls/hr IV.SIG .Q24H [facility] Stop: 04/22/18 10:14 Last Admin: 04/21/18 10:17 Dose: 30 mls/hr Oxycodone/Acetaminophen (Percocet 5/325 Mg) 1 tab PO Q4H PRN PRN Reason: PAIN SCALE 1 TO 4 Sotalol 60mg Tablet 1 each PO Q12HR [facility] Last Admin: 04/21/18 22:08 Dose: Not Given Sodium Chloride (Ns Flush) 2 ml IV.FLUSH PRN PRN PRN Reason: FLUSH AFTER USING IV ACCESS Sodium Chloride (Ns Flush) 2 ml IV.FLUSH BID [facility] Last Admin: 04/22/18 08:50 Dose: 2 ml Sodium Chloride (Ns Flush) 2 ml IV.FLUSH PRN PRN PRN Reason: FLUSH AFTER USING IV ACCESS Tamsulosin HCl (Flomax) 0.4 mg PO HS [facility] Last Admin: 04/21/18 21:44 Dose: 0.4 mg Allergies Allergy/AdvReac Type Severity Reaction Status Date / Time diatrizoate meglumine Allergy Severe Hives Verified 04/21/18 10:01 gadobenic acid Allergy Severe Hives Verified 04/21/18 10:01 gadodiamide Allergy Severe Hives Verified 04/21/18 10:01 gadoteridol Allergy Severe Hives Verified 04/21/18 10:01 iodixanol Allergy Severe Hives Verified 04/21/18 10:01 iohexol Allergy Severe Hives Verified 04/21/18 10:01 pesticide Allergy Intermediate Hives Verified 04/21/18 10:01 Home Medications Medication Instructions Recorded Confirmed Type enalapril maleate 5 mg PO BID 04/17/18 04/21/18 History furosemide 40 mg PO DAILY 04/17/18 04/21/18 History methocarbamol [Robaxin] 500 mg PO QID PRN 04/17/18 04/21/18 History omeprazole 40 mg PO DAILY 04/17/18 04/21/18 History sotalol 60 mg PO Q12H 04/17/18 04/21/18 History tamsulosin 0.4 mg PO HS 04/17/18 04/21/18 History tramadol 50 mg PO QID 04/17/18 04/21/18 History Exam Vital signs: Vital Signs 04/21/18 09:56 04/21/18 10:09 04/21/18 10:14 Temperature 100.2 F H Pulse Rate 104 H 122 H 120 H Respiratory Rate 24 28 H Blood Pressure 150/73 H 140/75 Pulse Oximetry 95 96 96 04/21/18 10:26 04/21/18 11:11 04/21/18 11:26 Temperature 99.6 F Pulse Rate 102 H 104 H Respiratory Rate 24 24 Blood Pressure 120/79 147/78 H 156/71 H Pulse Oximetry 93 L 93 L 04/21/18 11:41 04/21/18 11:56 04/21/18 12:00 Temperature Pulse Rate 106 H 109 H 120 H Respiratory Rate Blood Pressure 157/75 H 124/79 Pulse Oximetry 94 L 95 04/21/18 12:26 04/21/18 12:56 04/21/18 13:00 Temperature Pulse Rate 107 H 93 H 104 H Respiratory Rate Blood Pressure 156/77 H 157/93 H Pulse Oximetry 95 97 04/21/18 13:26 04/21/18 13:56 04/21/18 14:00 Temperature Pulse Rate 98 H 91 H 94 H Respiratory Rate Blood Pressure 154/80 H 142/73 H Pulse Oximetry 98 94 L 04/21/18 14:56 04/21/18 14:57 04/21/18 15:00 Temperature 98.3 F Pulse Rate 94 H 104 H 103 H Respiratory Rate 18 Blood Pressure 152/79 H 152/79 H Pulse Oximetry 97 94 L 04/21/18 15:56 04/21/18 16:00 04/21/18 16:29 Temperature Pulse Rate 93 H 88 Respiratory Rate Blood Pressure 129/75 Pulse Oximetry 95 95 04/21/18 16:56 04/21/18 17:04 04/21/18 17:56 Temperature Pulse Rate 95 H 107 H 95 H Respiratory Rate Blood Pressure 137/66 132/66 Pulse Oximetry 95 95 04/21/18 18:00 04/21/18 19:00 04/21/18 20:00 Temperature 98.3 F Pulse Rate 90 88 84 Respiratory Rate 18 Blood Pressure 124/71 Pulse Oximetry 98 98 04/21/18 21:00 04/21/18 21:48 04/21/18 22:00 Temperature Pulse Rate 76 80 Respiratory Rate Blood Pressure Pulse Oximetry 95 04/21/18 23:00 04/22/18 00:00 04/22/18 01:00 Temperature Pulse Rate 78 74 78 Respiratory Rate 16 Blood Pressure 142/67 H Pulse Oximetry 98 04/22/18 02:00 04/22/18 03:00 04/22/18 04:00 Temperature Pulse Rate 72 76 78 Respiratory Rate 16 Blood Pressure 105/59 L Pulse Oximetry 96 04/22/18 05:00 04/22/18 06:00 04/22/18 07:00 Temperature 98.2 F Pulse Rate 78 76 82 Respiratory Rate 16 Blood Pressure 171/86 H Pulse Oximetry 96 04/22/18 08:00 04/22/18 09:00 04/22/18 09:33 Temperature Pulse Rate 72 70 86 Respiratory Rate Blood Pressure Pulse Oximetry 96 Intake & Output 04/21/18 04/22/18 04/22/18 18:59 06:59 18:59 Intake Total 960 / 960 240 / 240 Output Total 900 / 900 600 / 600 Balance 60 / 60 -360 / -360 Weight 152.3 kg 147.6 kg Intake: Oral 960 / 960 240 / 240 Output: Urine 900 / 900 600 / 600 Other: Date of Last Bowel Movement 04/20/18 04/20/18 04/20/18 # Bowel Movements 0 Weight On Admission 152.3 kg Narrative: GENERAL: This is a well-nourished, well-developed patient, in no apparent distress. CARDIOVASCULAR: Normal rate and irregular rhythm without murmurs, gallops, or rubs. RESPIRATORY: Good respiratory efforts. Breath sounds equal and clear to auscultation bilaterally. GASTROINTESTINAL: Abdomen soft, non-tender, non-distended. Normal active bowel sounds MUSCULOSKELETAL: Extremities without cyanosis, or edema. NEURO: Alert & Oriented x4 to person, place, time, situation. Moves all ext x4 PSYCH: Appropriate mood and affect. Results - Labs CBC & Chem 7: 04/22/18 05:26 04/22/18 05:26 Labs: Laboratory Results - last 24 hr 04/21/18 04/21/18 04/21/18 10:05 10:05 10:05 WBC 12.4 H RBC 4.27 L Hgb 12.9 L POC Hgb (Calc) 12.9 L Hct 38.5 L POC Hct 38.0 L MCV 90.3 MCH 30.2 MCHC 33.5 RDW 14.2 Plt Count 172 D MPV 8.8 Neut % (Auto) 92.2 H Lymph % (Auto) 4.3 L Frio % (Auto) 2.1 Eos % (Auto) 0.9 Baso % (Auto) 0.5 Neut # (Auto) 11.5 H Lymph # (Auto) 0.5 L Frio # (Auto) 0.3 Eos # (Auto) 0.1 Baso # (Auto) 0.1 WBC Differential . Differential Comment Auto diff final PT 11.7 H INR 1.2 APTT 27.9 POC Sodium 139 Sodium POC Potassium 4.1 Potassium POC Chloride 95 L Chloride Carbon Dioxide Anion Gap POC BUN 15 BUN Creatinine POC Creatinine 0.9 Estimated GFR POC Glucose 115 H Random Glucose Calcium 8.3 L Magnesium 1.8 Total Creatine Kinase 98 Troponin I 0.02 B-Natriuretic Peptide 04/21/18 04/22/18 04/22/18 10:05 05:26 05:26 WBC 10.5 RBC 4.07 L Hgb 12.3 L POC Hgb (Calc) Hct 36.3 L POC Hct MCV 89.0 MCH 30.2 MCHC 33.9 RDW 14.5 Plt Count 146 L MPV 8.7 Neut % (Auto) 75.9 H Lymph % (Auto) 15.2 Frio % (Auto) 7.3 Eos % (Auto) 0.9 Baso % (Auto) 0.7 Neut # (Auto) 8.0 H Lymph # (Auto) 1.6 Frio # (Auto) 0.8 Eos # (Auto) 0.1 Baso # (Auto) 0.1 WBC Differential . Differential Comment Auto diff final PT INR APTT POC Sodium Sodium 138 POC Potassium Potassium 3.8 POC Chloride Chloride 100 Carbon Dioxide 30.6 Anion Gap 7 POC BUN BUN 13 Creatinine 0.87 POC Creatinine Estimated GFR 87 L POC Glucose Random Glucose 94 Calcium 8.6 Magnesium Total Creatine Kinase Troponin I B-Natriuretic Peptide 154 H - Imaging Impressions Chest X-Ray 04/21/18 10:09 CONCLUSION: Significant cardiomegaly with radiographic findings consistent with congestive heart failure and pulmonary edema. Left lower lobe atelectasis versus airspace consolidation. Assessment and Plan - Plan 72 Y/O male admitted as STEMI alert. STEMI alert: -Patient was taken in emergently for heart catheterization. Severe lumbee coronary artery disease, he has patent graft. No interventions indicated. Discussed the case with Dr. clark. Symptoms possibly due to esophageal spasm -The patient's symptoms completely resolved. He is advised to continue on PPI and avoid food that can irritate his GI lining. -Continue aspirin, statin. - Preserved EF on echo Afib: - Rate controlled. -Patient to continue on Eliquis and sotalol. He is advised to follow-up outpatient with cardiology. Hx of CHF -Continue lasix and enalapril. He is on sotalol already. EF is normal. Discharge Planning: Discharge patient to home Condition on discharge: Improved Regular Diet as tolerated Ad Jaylene activity Rx written: Per med rec Follow-up with primary care physician
[2018-04-22 12:15] VITALS: BP 136/78; RESP 18; TEMP 98.1
[2018-04-22 12:16] VITALS: PULSE 87
--- NOTE | 2018-04-23 18:11 | P.DCO ---
- Diagnosis (1) Atrial fibrillation with RVR Status: Acute (2) Physical deconditioning Status: Acute (3) STEMI (ST elevation myocardial infarction) Status: Acute - Physical Therapy Order: Evaluate and treat, Improve ambulation - Home Health Nursing Order: Medical education, Signs/symptoms of disease process, CHF education, Medication education-adverse effect - Case Management Consult No - Certification I have seen patient Salty Castro on 04/23/18. My clinical findings support the need for the requested home health care services because: Limited mobility due to disease progression I certify that my clinical findings support that this patient is homebound because: Poor cardiac reserve (Resume Home health)
== END 2018-04-22 14:00 | disposition home or self-care (01) ==
LOC: NEPE 09:54 → HCIS 13:12
PROVIDERS: ADMIT Family Medicine; ATTEND Family Medicine